=== PATIENT | male | born 1945 | race Caucasian/White ===

== ENCOUNTER 2016-05-08 10:49 | Inpatient (IN) | payer OTHER, MEDICARE ==
[~2016-05-08] VITALS: Ht 180.3 cm; Wt 93.0 kg
--- NOTE | 2016-05-08 10:55 | NUR ---
ARRIVED BY AMBULANCE WITH C/O LIGHTHEADED AND GI BLEED(BRIGHT RED BLOOD) SINCE EARLY THIS MORNING. S/P COLOSCOPY WITH POLYP REMOVAL LAST WEDNESDAY. JOSSE HELD TODAY.
--- NOTE | 2016-05-08 11:01 | ED GI/GU/ABDOMINAL COMPLAINT ---
History of Present Illness General Chief Complaint: General Adult Stated Complaint: GI BLEEDING Source: patient, old records Exam Limitations: no limitations Vital Signs & Intake/Output Vital Signs & Intake/Output Vital Signs Date Time Temp Pulse Resp B/P Pulse O2 O2 Flow FiO2 Ox Delivery Rate 05/08 1720 99 Room Air 05/08 1550 98.4 74 18 133/59 100 Room Air / 1530 97.1 70 16 132/59 100 Room Air / 1433 75 18 142/63 100 Room Air / 1345 97.1 93 18 102/58 100 Room Air 02/ 1314 96.8 91 18 101/58 100 Room Air / 1212 87 109/55 02/ 1207 92 20 95/59 99 Room Air 05/08 1130 100 05/08 1104 99 Room Air 05/08 1055 95.5 88 18 103/55 Allergies Coded Allergies: NO KNOWN ALLERGIES (04/29/16) Triage Note: ARRIVED BY AMBULANCE WITH C/O LIGHTHEADED AND GI BLEED(BRIGHT RED BLOOD) SINCE EARLY THIS MORNING. S/P COLOSCOPY WITH POLYP REMOVAL LAST WEDNESDAY. XARELTA HELD TODAY. Triage Nurses Notes Reviewed? yes HPI: Patient is a 70-year-old male presents complaining of bright red blood per rectum. Patient reports he had a colonoscopy 9 days ago. Patient reports that he had 2 large polyps removed at that time. 2 days ago he began with diarrhea, reports approximately 12 episodes of diarrhea 2 days ago and then yesterday did not have diarrhea again until approximately 11 PM. Patient noticed bright red blood per rectum starting overnight. Associated lightheadedness especially with position changes. Lightheadedness is currently mild at rest, has been severe at home. Patient takes Xarelto for atrial fibrillation, did not take his dose this morning after speaking with his GI doctor, Dr. Moreno. Patient denies abdominal pain, nausea, vomiting, melena, chest pain, dyspnea. (NICK ABERNATHY,MICHELE) Reconcile Medications Acetaminophen (Tylenol Extra Strength) 500 MG TABLET 1-2 TAB PO PRN PRN PAIN (Reported) Cyanocobalamin/FA/Pyridoxine (Folbic Tablet) 2 MG-2.5 MG-25 MG TABLET 1 TAB PO DAILY MUSCLE ATROPHY (Reported) Digoxin 125 MCG TABLET 1 TAB PO DAILY CARDIAC (Reported) MWF WHOLE PILL, T-TH HALF TAB, SAT/SUN VARIABLE, USUALLY WHOLE Docusate Sodium (Colace) 100 MG CAPSULE 1 CAP PO DAILY CONSTIPATION (Reported ) Ferrous Sulfate 324 MG (65 MG IRON) TABLET.DR 1 TAB PO DAILY ANEMIA (Reported ) Furosemide 40 MG TABLET 1 TAB PO DAILY HTN (Reported) Losartan Potassium 100 MG TABLET 1 TAB PO DAILY HTN (Reported) Metoprolol Succinate 100 MG TAB.ER.24H 1 TAB PO DAILY HTN (Reported) Rivaroxaban (Xarelto) 20 MG TABLET 1 TAB PO DAILY AFIB (Reported) with food Sacubitril/Valsartan (Entresto 24 MG-26 MG Tablet) 24 MG-26 MG TABLET 1 TAB PO DAILY CARDIAC (Reported) Spironolactone 25 MG TABLET 1 TAB PO DAILY HTN (Reported) (TOSHIA GOTTI DO) Past History Travel History Traveled to [place] past 21 day No Medical History Any Pertinent Medical History? see below for history Neurological: NONE EENT: SOFT PALATE CA Cardiovascular: hypertension, hyperlipidemia, myocardial infarction, QUADRUPLE BYPASS 1997 Surgical History Surgical History: colonoscopy Psychosocial History What is your primary language Vietnamese Tobacco Use: Never used ETOH Use: denies use Illicit Drug Use: denies illicit drug use Family History Hx Contributory? No (MICHELE DE LA ROSA) Review of Systems Review of Systems Constitutional: Reports: malaise, weakness. Denies: chills, fever. EENTM: Reports: no symptoms. Respiratory: Denies: cough, short of breath. Cardiovascular: Denies: chest pain. GI: Reports: no symptoms. Genitourinary: Reports: no symptoms. Musculoskeletal: Reports: no symptoms. Skin: Reports: no symptoms. Neurological/Psychological: Denies: headache, numbness. Hematologic/Endocrine: Reports: bleeding. Immunologic/Allergic: Reports: no symptoms. (MICHELE DE LA ROSA) Physical Exam Physical Exam General Appearance: alert, awake Head: atraumatic, normal appearance Eyes: Bilateral: PERRL, EOMI, other (pale conjunctiva). Ears, Nose, Throat, Mouth: hearing grossly normal, moist mucous membrane Neck: normal inspection, supple, full range of motion Respiratory: normal breath sounds, chest non-tender, no respiratory distress, lungs clear Cardiovascular: irregularly irregular Gastrointestinal: normal bowel sounds, soft, non-tender Rectal: small amount of bright red blood in rectal vault. No external hemorrhoids, no palpable internal hemorrhoid Back: normal inspection, normal range of motion Extremities: normal range of motion Neurologic/Psych: no motor/sensory deficits, awake, alert, oriented x 3 Skin: intact, warm/dry Core Measures ACS in differential dx? Yes ASA ordered for poss ACS? No-d/t bleeding/risk of Severe Sepsis Present: No Septic Shock Present: No (NICK ABERNATHY,MICHELE) Progress Differential Diagnosis: upper versus lower GI bleed, symptomatic anemia, demand ischemia, bowel perforation Plan of Care: Orders Procedure Date/time Status CBC WITHOUT DIFFERENTIAL 05/09 1700 Active ICU LAB BUNDLE 05/09 0500 Active CBC WITHOUT DIFFERENTIAL 05/09 0500 Active Clear Liquid Diet 05/08 D Active TROPONIN LEVEL 05/08 2300 Active EKG 05/08 2300 Active ICU LAB BUNDLE 05/08 1727 Active VTE Mechanical Prophylaxis 05/08 1719 Active Vital Signs 05/08 1719 Active Teach/Educate 05/08 1719 Active Skin Integrity Protocol 05/08 1719 Active Skin/Pressure Ulcer Assess (Sk 05/08 1719 Active Precautions 05/08 1719 Active Pain Treatment and Response 05/08 1719 Active Nutritional Intake, Monitor 05/08 1719 Active Isolation 05/08 1719 Active Patient Care Conference 05/08 1719 Active Activity/Ambulation 05/08 1719 Active TROPONIN LEVEL 05/08 1700 Active CBC WITHOUT DIFFERENTIAL 05/08 1700 Active EKG 05/08 1700 Active BLOOD PRODUCT PICKUP 05/08 1500 Active VRE ACTIVE SURVIELLANCE 05/08 1432 Active ACTIVE SURVEILLANCE NARES 05/08 1432 Active Pathway - chart 05/08 1338 Active Code Status 05/08 1338 Active Intake & Output 05/08 1312 Active Patient Data 05/08 1248 Active Admit to inpatient 05/08 1242 Active BLOOD PRODUCT PICKUP 05/08 1234 Active LEUKOCYTE POOR (PACKED CELLS) 05/08 1213 Active TOTAL IRON BINDING CAPACITY 05/08 1201 Complete FERRITIN 05/08 1201 Complete SERUM IRON 05/08 1201 Complete DIGOXIN 05/08 1201 Complete MISTAKE 05/08 1111 Active Telemetry/Building Rigger 05/08 1111 Active TROPONIN LEVEL 05/08 1111 Complete PROTHROMBIN TIME 05/08 1111 Complete COMPREHENSIVE METABOLIC PANEL 05/08 1111 Complete CBC WITHOUT DIFFERENTIAL 05/08 1111 Complete EKG 05/08 1111 Active TYPE & SCREEN (NOT X-MATCH) 05/08 1111 Active House Staff 05/08 UNK Active Lab Add-on Test 05/08 UNK Active VTE Mechanical Prophylaxis 05/08 UNK Complete Vital Signs 05/08 UNK Complete Hemoccult 05/08 UNK Active Laboratory Tests 05/08/16 1201: Anion Gap 8, Estimated GFR 50 L, BUN/Creatinine Ratio 35.7 H, Glucose 124 H, Calcium 8.9, Iron 63, TIBC 352, Ferritin 22.0, Total Bilirubin 0.8, AST 22, ALT 31, Alkaline Phosphatase 53, Troponin I 0.02, Total Protein 5.6 L, Albumin 3.4 L, Globulin 2.2, Albumin/Globulin Ratio 1.5, PT 14.7 H, INR 1.40 H, Digoxin 0.7 L 05/08/16 1128: CBC w Diff NO MAN DIFF REQ, RBC 3.19 L, MCV 87.2, MCH 29.2, RDW 21.6 H, MPV 8.6, Gran % 78.9 H, Lymphocytes % 16.5 L, Monocytes % 3.7, Eosinophils % 0.6, Basophils % 0.3, Absolute Granulocytes 5.5, Absolute Lymphocytes 1.2, Absolute Monocytes 0.3, Absolute Eosinophils 0, Absolute Basophils 0, PUBS MCHC 33.5 Microbiology 05/08 1700 UPPER RESP: Surveillance Culture - RECD 05/08 1432 GI: Surveillance Culture - COLB 1145: Discussed with and seen by Dr. Gotti: given patient's blood pressure and ekg changes, recommend transfusing 2 units of PRBC. Discussed with Dr. Moreno 1210: Patient consented to blood transfusion, risks and benefits discussed. Patient resting comfortably. Significant blood pressure drop with orthostatic vitals. 1245: Dr. Gotti discussed with Dr. 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 Prior EKG: changed Rhythm Strip: atrial fibrillation (MICHELE DE LA ROSA) Departure Departure Disposition: STILL A PATIENT Condition: Guarded Clinical Impression Primary Impression: GI bleed Qualifiers: GI bleed type/associated pathology: unspecified gastrointestinal hemorrhage type Qualified Code: K92.2 - Gastrointestinal hemorrhage, unspecified Secondary Impressions: Acute electrocardiogram changes, Elevated BUN Referrals: MARIA T GOMEZ,JASON Cantu (PCP/Family) Departure Forms: Customer Survey General Discharge Information (MICHELE DE LA ROSA) Admission Note Spoke With: JEFF GOMEZ,ADALID Mcnally Documentation of Exam: Documentation of any treatments & extenuating circumstances including Concerns Regarding Discharge (functional status, medication knowledge or non-compliance, living conditions, etc.) that warrant an admission rather than observation: [The patient needs admission to the ICU for IV fluids, GI consultation, possible blood transfusion, possible inpatient colonoscopy, intensive hemodynamic monitoring, Dr Land and Dr. Moreno have both been informed] I have seen and personally examined the patient and I agree with the PAs evaluation. He is pale. Hypotensive. PA/SPARE FIXER Co-Sign Statement Statement: ED Attending supervision documentation- [X] I saw and evaluated the patient. I have also reviewed all the pertinent lab results and diagnostic results. I agree with the findings and the plan of care as documented in the PA's/SPARE FIXER's documentation. [] I have reviewed the ED Record and agree with the PA's/SPARE FIXER's documentation. [] Additions or exceptions (if any) to the PAs/SPARE FIXER's note and plan are summarized below: [] (TOSHIA GOTTI DO) Critical Care Note Critical Care Note Critical Care Time: 30-74 min (MICHELE DE LA ROSA)
--- NOTE | 2016-05-08 11:02 | NUR ---
PT HAD A COLONOSCOPY AND STARTED HAVING DIARRHEA ON WEDNESDAY WITH SOME BLEEDING LAST NIGHT. PT FEELING LIGHTHEADED, DENIES ABD PAIN.
--- NOTE | 2016-05-08 11:04 | NUR ---
DR. COLBERT INSTRUCTED PATIENT TO HOLD THE XARELTA TODAY.
--- NOTE | 2016-05-08 11:36 | NUR ---
BLOOD SENT (SST/LAV/BLUE/PINK). MST AT BEDSIDE FOR ORTHOSTATICS. PT ALERT, DENIES DIZZINESS WHILE SEATED. ON TELE MONITOR AND CONT SP02.
--- NOTE | 2016-05-08 11:39 | NUR ---
BP/L ARM, 80/60, R ARM 90/60
[2016-05-08 11:43] LABS: ABSOLUTE BASOPHIL COUNT 0 /CUMM (0.0-0.2); ABSOLUTE EOSINOPHIL COUNT 0 /CUMM (0.0-0.7); ABSOLUTE GRANULOCYTE CT 5.5 /CUMM (1.4-6.5); ABSOLUTE LYMPH COUNT 1.2 /CUMM (1.2-3.4); ABSOLUTE MONOCYTE COUNT 0.3 /CUMM (0.10-0.60); BASOPHIL % 0.3 % (0.0-2.0); EOSINOPHIL % 0.6 % (0-5); GRANULOCYTE % 78.9 % (42.2-75.2); HEMATOCRIT 27.8 % (42-52); MEAN CORPUSCULAR HGB 29.2 PG (27.0-31.0); MEAN CORPUSCULAR HGB CONC 33.5 G/DL (33.0-37.0); MEAN CORPUSCULAR VOLUME 87.2 FL (80.0-94.0); MEAN PLATELET VOLUME 8.6 FL (7.4-10.4); PLATELET COUNT 140 /CUMM (130-400); RBC DISTRIBUTION WIDTH 21.6 % (11.5-14.5); RED BLOOD CELL CT 3.19 /CUMM (4.70-6.10)
--- NOTE | 2016-05-08 12:06 | NUR ---
2OG IV LINE INSERTED TO LEFT AC. REPEAT BP 95/59
--- NOTE | 2016-05-08 12:07 | NUR ---
LABS DRAWN AND SENT
--- NOTE | 2016-05-08 12:11 | NUR ---
SECOND LITER OF NS INFUSING PER JOSEMANUEL ROBINS ORDER. BP 109/55. BLOOD TRANSFUSION CONSENT OBTAINED BY PA. PT AWARE OF PLAN OF CARE AND IN AGREEMENT TO RECEIVE BLOOD TRANSFUSION
[2016-05-08 12:26] LABS: PT 14.7 SEC (9.4-12.5)
--- NOTE | 2016-05-08 13:31 | Cons- Gastroenterology ---
General Information and HPI Consulting Request Date of Consult: 05/08/16 Requested By: JOSEMANUEL Brownlee Reason for Consult: BRBPR s/p colonoscopy one week ago. Iron deficiency anemia. Source of Information: patient, old records Exam Limitations: no limitations History of Present Illness: Mr. Darnell is a 70-year-old male with history of atrial fibrillation on Xarelto who presented to [facility] this morning with complaints of bright blood per rectum. The patient underwent a colonoscopy a week ago Wednesday at which point 2 large sessile right-sided colon polyps were removed in a piecemeal fashion and the polypectomy sites then had a total of 7 hemoclips applied to them. He was instructed to hold his Xarelto for 72 hours which he did and he restarted it over the weekend. He had been doing well without any significant abdominal pain and with normal bowel movements, but then last night he began having some loose stool and early this morning he noted his stool to be blood tinged, but he did not pass any clots. He called my office at which point he reported some lightheadedness and he was therefore told to go to the emergency room for further evaluation. In the ER he was hemodynamically stable and he has not had any further bleeding since this morning. Allergies/Medications Allergies: Coded Allergies: NO KNOWN ALLERGIES (04/29/16) Home Med List: Acetaminophen (Tylenol Extra Strength) 500 MG TABLET 1-2 TAB PO PRN PRN PAIN (Reported) Cyanocobalamin/FA/Pyridoxine (Folbic Tablet) 2 MG-2.5 MG-25 MG TABLET 1 TAB PO DAILY MUSCLE ATROPHY (Reported) Digoxin 125 MCG TABLET 1 TAB PO DAILY CARDIAC (Reported) MWF WHOLE PILL, T-TH HALF TAB, SAT/SUN VARIABLE, USUALLY WHOLE Docusate Sodium (Colace) 100 MG CAPSULE 1 CAP PO DAILY CONSTIPATION (Reported ) Ferrous Sulfate 324 MG (65 MG IRON) TABLET.DR 1 TAB PO DAILY ANEMIA (Reported ) Furosemide 40 MG TABLET 1 TAB PO DAILY HTN (Reported) Losartan Potassium 100 MG TABLET 1 TAB PO DAILY HTN (Reported) Metoprolol Succinate 100 MG TAB.ER.24H 1 TAB PO DAILY HTN (Reported) Rivaroxaban (Xarelto) 20 MG TABLET 1 TAB PO DAILY AFIB (Reported) with food Sacubitril/Valsartan (Entresto 24 MG-26 MG Tablet) 24 MG-26 MG TABLET 1 TAB PO DAILY CARDIAC (Reported) Spironolactone 25 MG TABLET 1 TAB PO DAILY HTN (Reported) Current Medications: Current Medications Sig/Camron Start time Last Medication Dose Route Stop Time Status Admin Sodium Chloride 1,000 ML BOLUS ONE 05/08 1215 DC 05/08 IV 05/08 1314 1130 Past History Travel History Traveled to [place] past 21 day No Medical History Neurological: NONE EENT: SOFT PALATE CA Cardiovascular: hypertension, hyperlipidemia, myocardial infarction, QUADRUPLE BYPASS 1998 Surgical History Surgical History: colonoscopy Psychosocial History ETOH Use: denies use Illicit Drug Use: denies illicit drug use Review of Systems Review of Systems Constitutional: Reports: malaise, weakness. Denies: chills, diaphoresis, unexplained weight loss. EENTM: Denies: no symptoms. Cardiovascular: Denies: no symptoms. Respiratory: Denies: no symptoms. GI: Reports: see HPI. Genitourinary: Denies: no symptoms. Musculoskeletal: Denies: no symptoms. Skin: Denies: no symptoms. Neurological/Psychological: Denies: no symptoms. Hematologic/Endocrine: Denies: no symptoms. Immunologic/Allergic: Denies: no symptoms. All Other Systems: Reviewed and Negative Exam & Diagnostic Data Vital Signs and I&O Vital Signs Date Time Temp Pulse Resp B/P Pulse O2 O2 Flow FiO2 Ox Delivery Rate 05/08 1314 96.8 91 18 101/58 100 Room Air 05/08 1212 87 109/55 05/08 1207 92 20 95/59 99 Room Air 05/08 1130 100 05/08 1104 99 Room Air 05/08 1055 95.5 88 18 103/55 Intake & Output 05/08 1600 05/08 0400 05/07 1600 05/07 0400 05/06 1600 05/06 0400 Intake Total 2000 Output Total Balance 2000 Intake, IV 2000 Patient 200 lb Weight Physical Exam General Appearance: well developed/nourished, no apparent distress, alert, comfortable Head: atraumatic, normal appearance Eyes: Bilateral: normal appearance. Ears, Nose, Throat: normal pharynx, normal ENT inspection Neck: normal inspection, supple, full range of motion Respiratory: normal breath sounds, chest non-tender, no respiratory distress Cardiovascular: irregularly irregular Gastrointestinal: normal bowel sounds, soft, non-tender, no organomegaly Rectal: deferred Back: normal inspection, normal range of motion Extremities: no edema Neurologic/Psych: no motor/sensory deficits, awake, alert, oriented x 3 Skin: intact, normal color, warm/dry Results Pertinent Lab Results: Laboratory Tests 05/08 05/08 1201 1128 Chemistry Sodium (137 - 145 mmol/L) 139 Potassium (3.5 - 5.1 mmol/L) 4.7 Chloride (98 - 107 mmol/L) 108 H Carbon Dioxide (22 - 30 mmol/L) 23 Anion Gap (5 - 16) 8 BUN (9 - 20 mg/dL) 50 H Creatinine (0.7 - 1.2 mg/dL) 1.4 H Estimated GFR (>60 ml/min) 50 L BUN/Creatinine Ratio (7 - 25 %) 35.7 H Glucose (65 - 99 mg/dL) 124 H Calcium (8.4 - 10.2 mg/dL) 8.9 Total Bilirubin (0.2 - 1.3 mg/dL) 0.8 AST (17 - 59 U/L) 22 ALT (21 - 72 U/L) 31 Alkaline Phosphatase (< 127 U/L) 53 Troponin I (<0.11 ng/ml) 0.02 Total Protein (6.3 - 8.2 g/dL) 5.6 L Albumin (3.5 - 5.0 g/dL) 3.4 L Globulin (1.9 - 4.2 gm/dL) 2.2 Albumin/Globulin Ratio (1.1 - 2.2 %) 1.5 Coagulation PT (9.4 - 12.5 SEC) 14.7 H INR (0.90 - 1.17) 1.40 H Hematology CBC w Diff NO MAN DIFF REQ WBC (4.8 - 10.8 /CUMM) 7.0 RBC (4.70 - 6.10 /CUMM) 3.19 L Hgb (14.0 - 18.0 G/DL) 9.3 L Hct (42 - 52 %) 27.8 L MCV (80.0 - 94.0 FL) 87.2 MCH (27.0 - 31.0 PG) 29.2 RDW (11.5 - 14.5 %) 21.6 H Plt Count (130 - 400 /CUMM) 140 MPV (7.4 - 10.4 FL) 8.6 Gran % (42.2 - 75.2 %) 78.9 H Lymphocytes % (20.5 - 51.1 %) 16.5 L Monocytes % (1.7 - 9.3 %) 3.7 Eosinophils % (0 - 5 %) 0.6 Basophils % (0.0 - 2.0 %) 0.3 Absolute Granulocytes (1.4 - 6.5 /CUMM) 5.5 Absolute Lymphocytes (1.2 - 3.4 /CUMM) 1.2 Absolute Monocytes (0.10 - 0.60 /CUMM) 0.3 Absolute Eosinophils (0.0 - 0.7 /CUMM) 0 Absolute Basophils (0.0 - 0.2 /CUMM) 0 PUBS MCHC (33.0 - 37.0 G/DL) 33.5 Imaging/Other Studies: Findings: There was a 1.5 cm sessile polyp in the cecum and there was also a 3 cm sessile polyp along the ileocecal valve. Both of the polyps were removed with a hexagonal snare and monopolar cautery in a piecemeal fashion and the pieces were retrieved through the colonoscope and were sent to pathology for further evaluation. 3 hemoclips were then placed over the cecal polypectomy site and another 4 hemoclips were then placed over the ileocecal valve polypectomy site ' closing' the defect without any significant bleeding ensuing. There were a few scattered diverticula appreciated in the sigmoid colon. The remainder the visualized colonic mucosa was grossly normal. Retroflex views in the rectum revealed small internal hemorrhoids. Retroflexed views in the right colon revealing polyps. Impression: 1. 2 large sessile right-sided colon polyp status post removal in a piecemeal fashion with a total of 7 prophylactic Hemoclip placed over the polypectomy sites. 2. Sigmoid diverticulosis. 3. Small internal hemorrhoids. TWO POLYPS, CECUM AND ASCENDING COLON, MULTIPLE POLYPECTOMIES: MULTIPLE TUBULAR ADENOMAS. NEGATIVE FOR INVASIVE CARCINOMA. Assessment/Plan Assessment/Recommendations: Assessment: Mr. Hollins is a 70 year old male with atrial fibrillation on xarelto who underwent a colonoscopy last week during which time two large right sided colonic polyps were removed who presents now with a few episodes of bright red blood per rectum which is quite likely secondary to a post polypectomy bleed and exacerbated by the xarelto. His hgb is stable from when he was first found to be anemic this past February, so while he is a bit hypotensive it doesn't appear as though he has lost a significant amount of blood and I am hopeful that repeat endoscopic intervention won't be necessary. It is possible that one of the clips may have fallen off accounting for the current bleeding or it is also possible that the bleeding may be unrelated to the polypectomies and could be secondary to hemorrhoids exacerbated by the diarrhea that he has had or a diverticular bleed is also possible, but he doesn't seem to be behaving as a diverticular bleed. Regardless, as he just had a colonoscopy a repeat one only needs to be done now if his bleeding persists in spite of holding the Xarelto although he still should have a repeat colonoscopy in 3-6 months to ensure that all of the adenomatous tissue has been removed. Recommendations: 1. Admit to the medical service. 2. Follow CBC q12 hours and transfuse as needed to keep hgb > 8 or as per cardiology recommendations. 3. Hold Xarelto and nsaids for now 4. Notify GI for signs of hemodynamically significant bleeding 5. If bleeding persists/recurs will then arrange for a repeat colonoscopy, but as he has not had any further bleeding since this am will hold off on that for now. 6. Full liquid diet ok for now with nothing red administered. I will continue to follow this patient and make further recommendations based on his clinical course and results of repeat blood work. Problem List: 1. GI bleed Copies To: JASON LIVE MD Consult Acknowledgment - Thank you for your consult request.
--- NOTE | 2016-05-08 13:35 | NUR ---
PT SEEN BY HOUSE STAFF FOR EVAL
--- NOTE | 2016-05-08 13:36 | History & Physical ---
ADONIS GOMEZ,[facility] 05/08/16 1336: General Information and HPI MD Statement: I have seen and personally examined EDDI ELLINGTON and documented this H&P. The patient is a 70 year old M who presented with a patient stated chief complaint of [bloody diarrhea, weakness, and dizziness]. Source of Information: patient, old records Exam Limitations: no limitations History of Present Illness: 70/M with PMH of HTN, HLD, A.fib on Xarelto,LE varicose veins, bypass surgery 19 years ago, and soft palate cancer (S/P resection, chemotherapy, and radiation 9 years ago) who presented to [facility] this morning with complaints of bright blood per rectum The patient underwent a colonoscopy on last Wednesday at which 2 large sessile right-sided colon polyps were removed. according to the patient he was told to hold Xarelto for 48 hours which he did. patient symptom started as dark watery bowel movements that day after the colonoscopy, his diarrhea then resolved until yesterday when he started again to have a brown-red loose stool, earlier today he had large watery bloody bowel movement. Since earlier today his diarrhea started to be associated with dizziness, lightheadedness and weakness. He denies fall, LOC, chest pain, palpitation or other symptom suggestive of severe anemia. Patient denies eating from outside, contact with people has similar symptom, recent use of antibiotic, recent travel, abdominal pain, nausea , vomiting, fever or chills. Patient has a strong family history of cancer with his father because of lymphosarcoma and mother because of breast cancer. Patient ambulates independently at baseline, smoked for 20 years 1 PPD followed by 35 years of average 2 cigars daily. Patient denies current alcohol drinking with his last drink being 35 years ago. He denies any other recreational drug use. Allergies/Medications Allergies: Coded Allergies: NO KNOWN ALLERGIES (04/29/16) Home Med list Acetaminophen (Tylenol Extra Strength) 500 MG TABLET 1-2 TAB PO PRN PRN PAIN (Reported) Cyanocobalamin/FA/Pyridoxine (Folbic Tablet) 2 MG-2.5 MG-25 MG TABLET 1 TAB PO DAILY MUSCLE ATROPHY (Reported) Digoxin 125 MCG TABLET 1 TAB PO DAILY CARDIAC (Reported) MWF WHOLE PILL, T-TH HALF TAB, SAT/SUN VARIABLE, USUALLY WHOLE Docusate Sodium (Colace) 100 MG CAPSULE 1 CAP PO DAILY CONSTIPATION (Reported ) Ferrous Sulfate 324 MG (65 MG IRON) TABLET.DR 1 TAB PO DAILY ANEMIA (Reported ) Furosemide 40 MG TABLET 1 TAB PO DAILY HTN (Reported) Losartan Potassium 100 MG TABLET 1 TAB PO DAILY HTN (Reported) Metoprolol Succinate 100 MG TAB.ER.24H 1 TAB PO DAILY HTN (Reported) Rivaroxaban (Xarelto) 20 MG TABLET 1 TAB PO DAILY AFIB (Reported) with food Sacubitril/Valsartan (Entresto 24 MG-26 MG Tablet) 24 MG-26 MG TABLET 1 TAB PO DAILY CARDIAC (Reported) Spironolactone 25 MG TABLET 1 TAB PO DAILY HTN (Reported) Past History Travel History Traveled to [place] past 21 day No Medical History Neurological: NONE EENT: SOFT PALATE CA Cardiovascular: hypertension, hyperlipidemia, myocardial infarction, QUADRUPLE BYPASS 1997 Surgical History Surgical History: colonoscopy Past Family/Social History Psychosocial History ETOH Use: denies use Illicit Drug Use: denies illicit drug use Review of Systems Review of Systems Constitutional: Reports: weakness. Denies: chills, diaphoresis, fever, malaise. EENTM: Reports: see HPI. Denies: blurred vision, visual changes, hearing changes. Cardiovascular: Denies: chest pain, orthopena, palpitations, peripheral edema, syncope. Respiratory: Denies: cough, hemoptysis, short of breath, sputum production. GI: Reports: diarrhea, melena, bloody stool. Denies: abdominal pain, constipation, distention, nausea, vomiting. Genitourinary: Denies: dysuria. Skin: Reports: see HPI. Exam & Diagnostic Data Last 24 Hrs of Vital Signs/I&O Vital Signs Date Time Temp Pulse Resp B/P Pulse O2 O2 Flow FiO2 Ox Delivery Rate 05/08 1345 97.1 93 18 102/58 100 Room Air / 1314 96.8 91 18 101/58 100 Room Air / 1212 87 109/55 02/ 1207 92 20 95/59 99 Room Air 02/ 1130 100 / 1104 99 Room Air 05/08 1055 95.5 88 18 103/55 Intake & Output 05/08 1600 05/08 0800 05/08 0000 Intake Total 1999 Output Total Balance 1999 Intake, IV 2000 Patient 90.718 kg Weight Physical Exam General Appearance Alert, Oriented X3, Cooperative, No Acute Distress Skin varicose pain over the lower limb bilaterally HEENT Atraumatic, PERRLA, EOMI, Mucous Membr. moist/pink Neck Supple, No JVD Cardiovascular irregular irregular Lungs Clear to Auscultation, right side has less air entry than left side, no wheezing or any additional sounds Abdomen Soft, No Tenderness Neurological Normal Speech Extremities No Edema, request pain over both lower extremity shins Last 24 Hrs of Labs/Williams: Laboratory Tests 05/08/16 1201: Anion Gap 8, Estimated GFR 50 L, BUN/Creatinine Ratio 35.7 H, Glucose 124 H, Calcium 8.9, Total Bilirubin 0.8, AST 22, ALT 31, Alkaline Phosphatase 53, Troponin I 0.02, Total Protein 5.6 L, Albumin 3.4 L, Globulin 2.2, Albumin/ Globulin Ratio 1.5, PT 14.7 H, INR 1.40 H 05/08/16 1128: CBC w Diff NO MAN DIFF REQ, RBC 3.19 L, MCV 87.2, MCH 29.2, RDW 21.6 H, MPV 8.6, Gran % 78.9 H, Lymphocytes % 16.5 L, Monocytes % 3.7, Eosinophils % 0.6, Basophils % 0.3, Absolute Granulocytes 5.5, Absolute Lymphocytes 1.2, Absolute Monocytes 0.3, Absolute Eosinophils 0, Absolute Basophils 0, PUBS MCHC 33.5 Assessment/Plan Assessment: 70/M with PMH of [place] on Xarelto who underwent a colonoscopy a week ago and presented to [facility] this morning with complaints of bright blood per rectum. Assessment and plan 1. Bright blood per rectum/bloody diarrhea/weakness/dizziness Patient is on Xarelto for A.fib, he underwent a colonoscopy a week ago, according to the patient he held Xarelto for 48 hours. Patient now presented with anemia associated with symptom and sign suggestive of hypovolemia(low BP, weakness and dizziness). * Patient will be admitted and his vital will be monitored Q1h * We will transfuse patient with 2 packed RBCs. * She will be nothing by mouth * Patient will be given PPI IV * Xarelto and antihypertensive will be on hold for now. * GI already informed, we'll follow their recommendation 2.Normocytic anemia Hemoglobin on November 2015 was 14, on February 2016 his hemoglobin dropped to 9.5. Old records indicate that since February 18 his hemoglobin has been around 9.5. We don't have enough records about this patient, but maybe this is not the first GI bleeding. Patient is on iron supplement which can turn stool dark. * Iron study * We will hold all iron supplement 3.ST abnormalities on EKG Patient EKG showed some ST elevation and depression. Did not really change from his previous EKG. STEMI and NSTEMI must be ruled out given the fact that we cannot count on the EKG. * ACS will be ruled out by serial of troponin and EKG * Patient has extensive cardiac history, we will consider consulting cardiology. 4.DOROTHY Cr baseline is 1, On admission his creatinine is 1.4. BUN/creatinine ratio of 35.7, this is most likely prerenal in nature. Given the history of bleeding, this patient most likely has DOROTHY 2/2 hypovolemia. * Patient will receive IV fluid * Patient will receive blood transfusion * Lisinopril and furosemide both on hold * Renal function will be repeated daily 5. A. fib * Xarelto on hold * We will keep potassium more than 4 and magnesium more than 2. * Metoprolol will be in hold his of hypotension. We will monitor her heartrate until further cardiology recommendation. 6.CHF with ICD implanted * Strict input and output * We will continue Digoxin * We will continue Spironolacton * Furosemide on hold(DOROTHY and hypotention) 7.HTN * Antihypertensive will be on hold until his blood pressure is stable * Entresto on hold * Metoprolol on hold 8.HLD * His statin will be held because of very low LDL DVT: ALPS only for now Diet: Nothing by mouth CODE STATUS: Full code As Ranked By This Provider Problem List: 1. GI bleed Qualifiers GI bleed type/associated pathology: unspecified gastrointestinal hemorrhage type Qualified Code: K92.2 - Gastrointestinal hemorrhage, unspecified Core Measures/Miscellaneous Acute Coronary Syndrome ACS Diagnosis: No Cerebrovascular Accident CVA/TIA Diagnosis: No Congestive Heart Failure CHF Diagnosis: No Venous Thromboembolism VTE Risk Factors: Age > 40, Smoking VTE Prophylaxis Ordered Inpt: Mechanical (ALPS/TEDS) No Mech VTE prophylaxis d/t: No contraindications No VTE Pharm Prophylaxis d/t: Active bleeding VTE Diagnosis: No VTE Type: NONE VTE Confirmed by (Test): NONE Severe Sepsis Severe Sepsis Present: No Septic Shock Septic Shock Present: No Miscellaneous Documentation Attending Case Discussed With: JEFF GOMEZ,ADALID Mcnally Primary Care Physician: JASON LIVE MD Patient sees these Specialists JASON LIVE MD Level of Patient Care: Critical Care (CRI) MILLA DARBY 05/08/16 1551: Past Family/Social History Family History Relations & Conditions if any FATHER (Lymphosarcoma). MOTHER (Breast cancer). Resident Review Statement Resident Statement: examined this patient, discussed with corporate legal intern, agreed with corporate legal intern, reviewed EMR data (avail) Other Findings: This is a 70 years old gentleman with past medical history of A. fib on arrival toe and digoxin status post ICD 2 years ago, coronary artery disease status post quadruple bypass in 1997, hypertension, soft palate cancer status post chemotherapy and radiotherapy 9 years ago after which deemed to be cancer free who presented with 2 days history of profuse diarrhea in which has been followed subsequently with pink stool and then blood in stool. He denies any abdominal pain, nausea, vomiting. He has no sick contacts and has not eaten anything out of ordinary. The patient had colonoscopy and excision of 2 sessile polyps on April 29 head he is very little for 48 hours as instructed and he started later on without any complication till when she started noting blood in stool. He volunteers history of lightheadedness and dizziness but denies any difficulty in breathing, palpitation, shortness of breath, has no chest pain. Patient denies any recent use of antibiotics. Physical examination: not in acute distress, alert oriented 3 HEENT: dry mucous membranes, no palpable nodes CVS: Irregularly irregular, no murmurs RS: Anterior mid chest wall scar, AICD in place, clear lungs bilaterally Abdomen: normal contour soft no tenderness, no palpable mass Extremeties: varicose vein, no edema, warm extremities Labs: H&H 9.3 and 27.8, INR 1.40, PTT 14.7, BUN of 50, creatinine 1.4 (baseline 1.0-1.1), GFR of 50 EKG: A. fib 94 bpm irregularly irregular, left bundle branch block and ST depression which were present from old EKG. Assessment and plan 70 years old gentleman presenting with 2 day history of diarrhea which he describes as projectile about 12 times yesterday and observation of blood in the stool which prior was pinkish and also complaining of dizziness and lightheadedness. He has no recent antibiotic use denies sick contact or eating anything exotic. On arrival was slightly hypotensive with slightly increased creatinine of 1.4 and a significantly high BUN of 50 Problem list Lower GI bleeding Dehydration with hypotension Acute kidney injury Artery fibrillation History of CAD status post quadruple bypass Lower GI bleeding Will admit the patient to intensive care unit, keep the patient nothing by mouth , 2 large-bore cannulas, blood grouping and crossmatch, IV Protonix 40 mg daily, CBC every 8 hours. Acute kidney injury Patient presenting with significant bump in creatinine from baseline of 1.1-1.4 and the picture of profuse diarrhea. this patient has coronary artery disease status post quadruple bypass and also has an AICD, no records about last echo with current EF. the patient received 1 liter NS bolus, will keep the patient on high maintance 150cc/hr for 1 litre and then track renal function. Dehydration with hypotension Developing from profuse diarrhea and reduced oral intake. Patient started on bolus NS and will keep on high maintanance. Will hold antihypertensive medications to be restarted when pressure has normalized. Atrial Fibrillation will hold digoxin and keep the patient on assembler bonding.
[2016-05-08] MEDS ORDERED: METOPROLOL SUC100 M2 PO (13:41)
[2016-05-08] MEDS ORDERED: LOSARTAN POTAS100 M1 PO (13:41)
[2016-05-08] MEDS ORDERED: XARELTO20 M2 PO (13:41)
[2016-05-08] MEDS ORDERED: SPIRONOLACTONE25 M1 PO (13:42)
[2016-05-08] MEDS ORDERED: FUROSEMIDE40 M1 PO (13:42)
[2016-05-08] MEDS ORDERED: ENTRESTO 24 MG1 EACH PO (13:42)
[2016-05-08] MEDS ORDERED: DIGOXIN125 MCG PO (13:43)
[2016-05-08] MEDS ORDERED: FOLBIC TABLET1 EACH PO (13:43)
[2016-05-08] MEDS ORDERED: COLACE100 M1 PO (13:44)
[2016-05-08] MEDS ORDERED: FERROUS SULFAT324 MG PO (13:44)
[2016-05-08] MEDS ORDERED: TYLENOL EXTRA500 M2 PO (13:45)
--- NOTE | 2016-05-08 13:51 | NUR ---
[facility] INFUSING 1ST UNIT, NO REACTION SO FAR. DR BROUSSARD AT BEDSIDE. ICE CHIPS PROVIDED (OK PER DR BROUSSARD). PT AWARE HE IS NPO OTHERWISE. PT OFFERS NO COMPLAINTS AT THIS TIME, AWAITING BED ASSIGNMENT.
--- NOTE | 2016-05-08 14:19 | Cons- CRCU ---
General Information and HPI Consulting Request Date of Consult: 05/08/16 Requested By: ed History of Present Illness: 70/M with PMH of HTN, HLD, A.fib on Xarelto,LE varicose veins, bypass surgery 19 years ago, and soft palate cancer (S/P resection, chemotherapy, and radiation 9 years ago) who presented to this morning with complaints of bright blood per rectum The patient underwent a colonoscopy on last Wednesday at which 2 large sessile right-sided colon polyps were removed. according to the patient he was told to hold Xarelto for 48 hours which he did. patient symptom started as dark watery bowel movements that day after the colonoscopy, his diarrhea then resolved until yesterday when he started again to have a brown-red loose stool, earlier today he had large watery bloody bowel movement. Since earlier today his diarrhea started to be associated with dizziness, lightheadedness and weakness. He denies fall, LOC, chest pain, palpitation or other symptom suggestive of severe anemia. Patient denies eating from outside, contact with people has similar symptom, recent use of antibiotic, recent travel, abdominal pain, nausea , vomiting, fever or chills. In the ER he is hemodynamic stable and he has not had any further bleeding since this morning. review of symptoms as noted Review of Systems Constitutional: Reports: malaise, weakness. Denies: chills, fever. EENTM: Reports: no symptoms. Respiratory: Denies: cough, short of breath. Cardiovascular: Denies: chest pain. GI: Reports: no symptoms. Genitourinary: Reports: no symptoms. Musculoskeletal: Reports: no symptoms. Skin: Reports: no symptoms. Neurological/Psychological: Denies: headache, numbness. Hematologic/Endocrine: Reports: bleeding. Immunologic/Allergic: Reports: no symptoms. SIGNIFICANT DATA Recent colonoscopy showed 2 large right-sided colon polyp status post removal, sigmoid diverticulosis, small internal hemorrhoids. Previous history reviewed which showed coronary artery disease, hypertension, hyperlipidemia, [place], previous CABG 1997, previous soft palate malignancy. Allergies/Medications Allergies: Coded Allergies: NO KNOWN ALLERGIES (04/29/16) Home Med List: Acetaminophen (Tylenol Extra Strength) 500 MG TABLET 1-2 TAB PO PRN PRN PAIN (Reported) Cyanocobalamin/FA/Pyridoxine (Folbic Tablet) 2 MG-2.5 MG-25 MG TABLET 1 TAB PO DAILY MUSCLE ATROPHY (Reported) Digoxin 125 MCG TABLET 1 TAB PO DAILY CARDIAC (Reported) MWF WHOLE PILL, T-TH HALF TAB, SAT/SUN VARIABLE, USUALLY WHOLE Docusate Sodium (Colace) 100 MG CAPSULE 1 CAP PO DAILY CONSTIPATION (Reported ) Ferrous Sulfate 324 MG (65 MG IRON) TABLET.DR 1 TAB PO DAILY ANEMIA (Reported ) Furosemide 40 MG TABLET 1 TAB PO DAILY HTN (Reported) Losartan Potassium 100 MG TABLET 1 TAB PO DAILY HTN (Reported) Metoprolol Succinate 100 MG TAB.ER.24H 1 TAB PO DAILY HTN (Reported) Rivaroxaban (Xarelto) 20 MG TABLET 1 TAB PO DAILY AFIB (Reported) with food Sacubitril/Valsartan (Entresto 24 MG-26 MG Tablet) 24 MG-26 MG TABLET 1 TAB PO DAILY CARDIAC (Reported) Spironolactone 25 MG TABLET 1 TAB PO DAILY HTN (Reported) Past History Travel History Traveled to [place] past 21 day No Medical History Neurological: NONE EENT: SOFT PALATE CA Cardiovascular: hypertension, hyperlipidemia, myocardial infarction, QUADRUPLE BYPASS 1997 Surgical History Surgical History: colonoscopy Psychosocial History ETOH Use: denies use Illicit Drug Use: denies illicit drug use Exam & Diagnostic Data Last 24 Hrs of Vital Signs/I&O Vital Signs Date Time Temp Pulse Resp B/P Pulse O2 O2 Flow FiO2 Ox Delivery Rate 05/08 1345 97.1 93 18 102/58 100 Room Air 05/08 1314 96.8 91 18 101/58 100 Room Air 05/08 1212 87 109/55 05/08 1207 92 20 95/59 99 Room Air 05/08 1130 100 05/08 1104 99 Room Air 05/08 1055 95.5 88 18 103/55 Intake & Output 05/08 1600 05/08 0800 05/08 0000 Intake Total 2000 Output Total Balance 2000 Intake, IV 2000 Patient 200 lb Weight Last 48 Hrs of Labs/Wliliams: Laboratory Tests 05/08/16 1201: Anion Gap 8, Estimated GFR 50 L, BUN/Creatinine Ratio 35.7 H, Glucose 124 H, Calcium 8.9, Total Bilirubin 0.8, AST 22, ALT 31, Alkaline Phosphatase 53, Troponin I 0.02, Total Protein 5.6 L, Albumin 3.4 L, Globulin 2.2, Albumin/ Globulin Ratio 1.5, PT 14.7 H, INR 1.40 H 05/08/16 1128: CBC w Diff NO MAN DIFF REQ, RBC 3.19 L, MCV 87.2, MCH 29.2, RDW 21.6 H, MPV 8.6, Gran % 78.9 H, Lymphocytes % 16.5 L, Monocytes % 3.7, Eosinophils % 0.6, Basophils % 0.3, Absolute Granulocytes 5.5, Absolute Lymphocytes 1.2, Absolute Monocytes 0.3, Absolute Eosinophils 0, Absolute Basophils 0, PUBS MCHC 33.5 Assessment/Plan Impression/Plan: Physical Exam General Appearance: alert, awake Head: atraumatic, normal appearance Eyes: Bilateral: PERRL, EOMI, other (pale conjunctiva). Ears, Nose, Throat, Mouth: hearing grossly normal, moist mucous membrane Neck: normal inspection, supple, full range of motion Respiratory: normal breath sounds, chest non-tender, no respiratory distress, lungs clear Cardiovascular: irregularly irregular Gastrointestinal: normal bowel sounds, soft, non-tender Rectal: small amount of bright red blood in rectal vault. No external hemorrhoids, no palpable internal hemorrhoid Back: normal inspection, normal range of motion Extremities: normal range of motion Neurologic/Psych: no motor/sensory deficits, awake, alert, oriented x 3 Skin: intact, warm/dry IMPRESSION This is a gentleman with recent colonoscopy with 2 large polyps which was removed, atrial fibrillation on anticoagulation with Xeralto, previous history of ischemic heart disease, cardiomyopathy, previous history of soft palate malignancy status post resection, chemotherapy, radiation 9 years ago, 20-pack- year smoking history with on and off cigar use, now comes in with * Significant lower GI bleed with hemodynamic instability which seems to have resolved after he was given intravenous fluids, now stable. Most likely source of his GI bleed is probably bleeding from his polyp removal site. Differential diagnoses include diverticular bleed versus hemorrhoidal bleed as patient is on Xeralto with internal hemorroids * REcent watery diarrhea prior to gi bleed, rule out any other causes of diarrhea * Stable hemoglobin ( since the last hemoglobin done in February.) * Atrial fibrillation with ischemic cardiomyopathy with probable low ejection fraction on Xeralto which may have compounded his bleeding. * Mild chronic kidney disease with slight worsening of his renal function most likely prerenal. * Chronic venous insufficiency with varicose veins with no evidence suggestive of active venous thromboembolism as he was already on anticoagulation with chronic leg edema. * Hypertension hyperlipidemia * Small internal hemorrhoids and sigmoid diverticulosis in the past. RECOMMENDATION Admit * Follow hemoglobin, hematocrit * Follow his stool. * GI consult. * Keep nothing by mouth for now. * Hold digoxin. * Check digoxin level. * Follow renal function this evening. Repeat blood work with C BC * Every 4 hours C BC for now. * Hold Xeralto * Hold his current hypertensive medication. * By mouth or IV PPI for now. * Hold spironolactone. * Follow his EKG and rule out myocardial infarction as he has, previous history of ischemic heart disease. Patient was critically ill upon admission but now seems to be slowly improving. Total time spent 45 minutes Consult Acknowledgment - Thank you for your consult request.
--- NOTE | 2016-05-08 14:24 | NUR ---
PT ADMITTED TO ROOM 109
--- NOTE | 2016-05-08 15:00 | NUR ---
FIRST UNIT BLOOD COMPLETE, NO REACTION, VITALS IMPROVING. PT WITH NO COMPLAINTS. PICKUP PLACED FOR 2ND UNIT NOW.
--- NOTE | 2016-05-08 15:50 | NUR ---
2ND UNIT RBCS UP, VSS
--- NOTE | 2016-05-08 16:03 | NUR ---
REPORT CALLED TO [facility] ON ICU, PT TO GO TO ROOM 104, ROOM AND STAFF ARE READY.
--- NOTE | 2016-05-08 16:06 | NUR ---
PT WILL GO TO ROOM 104
--- NOTE | 2016-05-08 16:44 | NUR ---
TRANSPORT HERE FOR PT
--- NOTE | 2016-05-08 18:47 | NUR ---
PT RECIEVED FROM ED AT 1700. PT A/O, NO NEORU DEFECITS NOTED. WALKED FROM STRETCHER TO BED. MILD LIGHTHEADEDNESS, SUBSIDING W REST. 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 PT IS ON RA AND 99%. LUNGS CLEAR. BLOOD TRANSFUSION COMPLETED. NO TRANSFUSION RXN NOTED. PT HAS A SOFT ABDOMEN WITH NO PAIN. NO C/O N/V. TOLERATING ICE CHIPS, STARTED ON A FULL LIQ DIET. 1700 LABS AND EKG OBTAINED. PT ORIENTED TO CALL [facility], 2 SIDE RAILS UP AND CALL [facility] WITHIN REACH.
[2016-05-08 19:07] LABS: ABSOLUTE BASOPHIL COUNT 0 /CUMM (0.0-0.2); ABSOLUTE EOSINOPHIL COUNT 0 /CUMM (0.0-0.7); ABSOLUTE GRANULOCYTE CT 5.8 /CUMM (1.4-6.5); ABSOLUTE LYMPH COUNT 1.4 /CUMM (1.2-3.4); ABSOLUTE MONOCYTE COUNT 0.4 /CUMM (0.10-0.60); BASOPHIL % 0.4 % (0.0-2.0); EOSINOPHIL % 0.3 % (0-5); GRANULOCYTE % 75.6 % (42.2-75.2); HEMATOCRIT 31.3 % (42-52); MEAN CORPUSCULAR HGB CONC 33.2 G/DL (33.0-37.0); MEAN CORPUSCULAR VOLUME 87.4 FL (80.0-94.0); MEAN PLATELET VOLUME 8.7 FL (7.4-10.4); PLATELET COUNT 126 /CUMM (130-400); RBC DISTRIBUTION WIDTH 20.7 % (11.5-14.5); RED BLOOD CELL CT 3.59 /CUMM (4.70-6.10); WHITE BLOOD CELL COUNT 7.7 /CUMM (4.8-10.8)
[2016-05-09] VITALS: BP 120/60
--- NOTE | 2016-05-09 00:29 | NUR ---
PT ALERT AND ORIENTED, DENIES PAIN AT THIS TIME. MANUAL BP 120/60, LALA 60"S. HE HAS A LEFT CW AICD. ABDOMEN SOFT, NORMOACTIVE BS. NO BM SO FAR. SKIN INTACT.
[2016-05-09 05:15] LABS: PT 13.5 SEC (9.4-12.5)
[2016-05-09 05:16] LABS: ABSOLUTE BASOPHIL COUNT 0 /CUMM (0.0-0.2); ABSOLUTE EOSINOPHIL COUNT 0.1 /CUMM (0.0-0.7); ABSOLUTE GRANULOCYTE CT 3.3 /CUMM (1.4-6.5); ABSOLUTE LYMPH COUNT 1.3 /CUMM (1.2-3.4); ABSOLUTE MONOCYTE COUNT 0.4 /CUMM (0.10-0.60); BASOPHIL % 0.5 % (0.0-2.0); EOSINOPHIL % 1.6 % (0-5); GRANULOCYTE % 63.7 % (42.2-75.2); HEMATOCRIT 26.4 % (42-52); MEAN CORPUSCULAR HGB 29.8 PG (27.0-31.0); MEAN CORPUSCULAR HGB CONC 34.3 G/DL (33.0-37.0); MEAN CORPUSCULAR VOLUME 86.9 FL (80.0-94.0); MEAN PLATELET VOLUME 9.1 FL (7.4-10.4); PLATELET COUNT 100 /CUMM (130-400); RBC DISTRIBUTION WIDTH 20.8 % (11.5-14.5); RED BLOOD CELL CT 3.04 /CUMM (4.70-6.10); WHITE BLOOD CELL COUNT 5.2 /CUMM (4.8-10.8)
--- NOTE | 2016-05-09 05:58 | NUR ---
HGB/HCT 9.1/26.4. NO BM NOTED. RESULT REPORTED TO .
[2016-05-09 08:00] VITALS: BP 122/64
--- NOTE | 2016-05-09 08:28 | PN- Resident CRCU ---
See Addendum Subjective HPI/CRCU Issues: ICU for bloody diarrhea, weakness, and dizziness 7 days post colon polyps were removed Patient was seen and examined. No acute overnight events were reported by the patient or his nurse. Patient still feels dizzy when with standing. His orthostatic test show a drop of 10 end-systolic(no orthostatic hypotension). Patient denies any chest pain, palpitation, or shortness breath. He denies abdominal pain, nausea or vomiting. She is saturating well on room air. Objective Vital Signs & I&O Last 8 Hrs of Vitals and I&O: Intake & Output 05/09 1600 05/09 0800 05/09 0000 Intake Total 100 1080 Output Total 400 500 Balance -300 580 Intake, IV 0 Intake, Oral 100 1080 Number 0 Bowel Movements Output, Urine 400 500 Patient 92.986 kg Weight Laboratory Tests 05/09 05/08 05/08 0430 2250 1730 Chemistry Sodium (137 - 145 mmol/L) 139 Potassium (3.5 - 5.1 mmol/L) 4.0 Chloride (98 - 107 mmol/L) 110 H Carbon Dioxide (22 - 30 mmol/L) 26 Anion Gap (5 - 16) 2 L BUN (9 - 20 mg/dL) 33 H Creatinine (0.7 - 1.2 mg/dL) 1.1 Estimated GFR (>60 ml/min) > 60 Glucose (65 - 99 mg/dL) 80 Calcium (8.4 - 10.2 mg/dL) 8.1 L Phosphorus (2.5 - 4.5 mg/dL) 3.1 Magnesium (1.6 - 2.3 mg/dL) 2.0 Total Bilirubin (0.2 - 1.3 mg/dL) 1.2 AST (17 - 59 U/L) 19 ALT (21 - 72 U/L) 31 Troponin I (<0.11 ng/ml) 0.03 0.04 Albumin (3.5 - 5.0 g/dL) 2.8 L Coagulation PT (9.4 - 12.5 SEC) 13.5 H INR (0.90 - 1.17) 1.29 H Hematology CBC w Diff NO MAN DIFF REQ WBC (4.8 - 10.8 /CUMM) 5.2 RBC (4.70 - 6.10 /CUMM) 3.04 L Hgb (14.0 - 18.0 G/DL) 9.1 L Hct (42 - 52 %) 26.4 L MCV (80.0 - 94.0 FL) 86.9 MCH (27.0 - 31.0 PG) 29.8 RDW (11.5 - 14.5 %) 20.8 H Plt Count (130 - 400 /CUMM) 100 L MPV (7.4 - 10.4 FL) 9.1 Gran % (42.2 - 75.2 %) 63.7 Lymphocytes % (20.5 - 51.1 %) 25.7 Monocytes % (1.7 - 9.3 %) 8.5 Eosinophils % (0 - 5 %) 1.6 Basophils % (0.0 - 2.0 %) 0.5 Absolute Granulocytes (1.4 - 6.5 /CUMM) 3.3 Absolute Lymphocytes (1.2 - 3.4 /CUMM) 1.3 Absolute Monocytes (0.10 - 0.60 /CUMM) 0.4 Absolute Eosinophils (0.0 - 0.7 /CUMM) 0.1 Absolute Basophils (0.0 - 0.2 /CUMM) 0 PUBS MCHC (33.0 - 37.0 G/DL) 34.3 02/03 02/03 1730 1201 Chemistry Sodium (137 - 145 mmol/L) 140 139 Potassium (3.5 - 5.1 mmol/L) 4.6 4.7 Chloride (98 - 107 mmol/L) 109 H 108 H Carbon Dioxide (22 - 30 mmol/L) 24 23 Anion Gap (5 - 16) 7 8 BUN (9 - 20 mg/dL) 46 H 50 H Creatinine (0.7 - 1.2 mg/dL) 1.2 1.4 H Estimated GFR (>60 ml/min) > 60 50 L BUN/Creatinine Ratio (7 - 25 %) 35.7 H Glucose (65 - 99 mg/dL) 78 124 H Calcium (8.4 - 10.2 mg/dL) 8.3 L 8.9 Phosphorus (2.5 - 4.5 mg/dL) 3.3 Magnesium (1.6 - 2.3 mg/dL) 2.0 Iron (49 - 181 ug/dL) 63 TIBC (261 - 462 ug/dL) 352 Ferritin (17.9 - 464 ng/mL) 22.0 Total Bilirubin (0.2 - 1.3 mg/dL) 1.4 H 0.8 AST (17 - 59 U/L) 22 22 ALT (21 - 72 U/L) 35 31 Alkaline Phosphatase (< 127 U/L) 53 Troponin I (<0.11 ng/ml) 0.02 Total Protein (6.3 - 8.2 g/dL) 5.6 L Albumin (3.5 - 5.0 g/dL) 3.2 L 3.4 L Globulin (1.9 - 4.2 gm/dL) 2.2 Albumin/Globulin Ratio (1.1 - 2.2 %) 1.5 Coagulation PT (9.4 - 12.5 SEC) 14.7 H INR (0.90 - 1.17) 1.40 H Hematology CBC w Diff NO MAN DIFF REQ WBC (4.8 - 10.8 /CUMM) 7.7 RBC (4.70 - 6.10 /CUMM) 3.59 L Hgb (14.0 - 18.0 G/DL) 10.4 L Hct (42 - 52 %) 31.3 L MCV (80.0 - 94.0 FL) 87.4 MCH (27.0 - 31.0 PG) 29.0 RDW (11.5 - 14.5 %) 20.7 H Plt Count (130 - 400 /CUMM) 126 L MPV (7.4 - 10.4 FL) 8.7 Gran % (42.2 - 75.2 %) 75.6 H Lymphocytes % (20.5 - 51.1 %) 18.0 L Monocytes % (1.7 - 9.3 %) 5.7 Eosinophils % (0 - 5 %) 0.3 Basophils % (0.0 - 2.0 %) 0.4 Absolute Granulocytes (1.4 - 6.5 /CUMM) 5.8 Absolute Lymphocytes (1.2 - 3.4 /CUMM) 1.4 Absolute Monocytes (0.10 - 0.60 /CUMM) 0.4 Absolute Eosinophils (0.0 - 0.7 /CUMM) 0 Absolute Basophils (0.0 - 0.2 /CUMM) 0 PUBS MCHC (33.0 - 37.0 G/DL) 33.2 Toxicology Digoxin (0.8 - 2.0 ng/mL) 0.7 L 05/08 1128 Hematology CBC w Diff NO MAN DIFF REQ WBC (4.8 - 10.8 /CUMM) 7.0 RBC (4.70 - 6.10 /CUMM) 3.19 L Hgb (14.0 - 18.0 G/DL) 9.3 L Hct (42 - 52 %) 27.8 L MCV (80.0 - 94.0 FL) 87.2 MCH (27.0 - 31.0 PG) 29.2 RDW (11.5 - 14.5 %) 21.6 H Plt Count (130 - 400 /CUMM) 140 MPV (7.4 - 10.4 FL) 8.6 Gran % (42.2 - 75.2 %) 78.9 H Lymphocytes % (20.5 - 51.1 %) 16.5 L Monocytes % (1.7 - 9.3 %) 3.7 Eosinophils % (0 - 5 %) 0.6 Basophils % (0.0 - 2.0 %) 0.3 Absolute Granulocytes (1.4 - 6.5 /CUMM) 5.5 Absolute Lymphocytes (1.2 - 3.4 /CUMM) 1.2 Absolute Monocytes (0.10 - 0.60 /CUMM) 0.3 Absolute Eosinophils (0.0 - 0.7 /CUMM) 0 Absolute Basophils (0.0 - 0.2 /CUMM) 0 PUBS MCHC (33.0 - 37.0 G/DL) 33.5 Exam General Appearance: well developed/nourished, no apparent distress, alert, awake , comfortable Head: atraumatic, normal appearance Neck: normal inspection Respiratory: normal breath sounds, chest non-tender, no respiratory distress Cardiovascular: regular rate/rhythm Gastrointestinal: normal bowel sounds, soft, non-tender Extremities: normal inspection, no edema Cranial Nerves: normal speech Current Medications: Current Medications Sig/Camron Start time Last Medication Dose Route Stop Time Status Admin Acetaminophen 650 MG Q6P PRN 05/08 1800 AC 05/09 PO 0914 Acetaminophen 1,000 MG Q6P PRN 05/08 1800 AC IV Morphine Sulfate 1 MG Q6-PRN PRN 05/08 1800 AC IV Omeprazole 40 MG DAILY AC 05/09 0700 AC 05/09 PO 0643 Pantoprazole Sodium 0 .STK-MED ONE 05/08 1349 DC IV Pantoprazole Sodium 40 MG DAILY 05/08 1337 DC 05/08 IV 1351 Sodium Chloride 1,000 ML BOLUS ONE 05/08 1215 DC 05/08 IV 05/08 1314 1130 Impression/Plan Impression/Problem List Impression: Assessment: 70/M with PMH of Homa on Xarelto who underwent a colonoscopy a week ago and presented to [facility] Wednesday with complaints of bright blood per rectum. Assessment and plan 1. Bright blood per rectum/bloody diarrhea/weakness/dizziness Patient is on Xarelto for Homa, he underwent a colonoscopy a week ago, according to the patient he held Xarelto for 48 hours. Patient now presented with anemia associated with symptom and sign suggestive of hypovolemia(low BP, weakness and dizziness). Post to packed RBCs transfusion patient vitals and H&H are stable. GI comminuted normal colonoscopy right now. patient will be downgraded to telemetry. Guaiac-positive today. * We will advance his diet * will DC PPI IV * Xarelto and antihypertensive will be on hold for now. * GI is on board, we'll follow their recommendation * Notify GI for signs of hemodynamically significant bleeding 2.Normocytic anemia Hemoglobin on November 2015 was 14, on February 2016 his hemoglobin dropped to 9.5. Old records indicate that since February 18 his hemoglobin has been around 9.5. We don't have enough records about this patient, but maybe this is not the first GI bleeding. Patient is on iron supplement which can turn stool dark. 3.ST abnormalities on EKG Patient EKG showed some ST elevation and depression. Did not really change from his previous EKG. STEMI and NSTEMI must be ruled out given the fact that we cannot count on the EKG. acute coronary syndrome was ruled out with serial troponins and EKG. 4.DOROTHY Cr baseline is 1, On admission his creatinine is 1.4. BUN/creatinine ratio of 35.7, this is most likely prerenal in nature. Given the history of bleeding, this patient most likely has DOROTHY 2/2 hypovolemia. He was started on IV fluids, after which his creatinine went back to 1.1 * Patient will receive IV fluid until he can tolerate oral intake * Patient will receive blood transfusion when necessary * Lisinopril and furosemide both on hold * Renal function will be repeated daily 5. A. evangelista * Xarelto on hold * We will keep potassium more than 4 and magnesium more than 2. * Metoprolol will be in hold his of hypotension. 6.CHF with ICD implanted * Strict input and output * We will continue Digoxin * We will continue Spironolacton * Furosemide on hold(DOROTHY and hypotention) 7.HTN * Antihypertensive will be on hold until his blood pressure is stable * Entresto on hold * Metoprolol on hold 8.HLD * His statin will be held because of very low LDL DVT: ALPS only for now Diet: Full liquid CODE STATUS: Full code Problem List: 1. GI bleed Pain Ratin Tomorrow's Labs & Rationales: cbc and icu bundle Plan DVT/Prophylaxis: mechanical, pharmacological
[2016-05-09 09:00] VITALS: BP 122/64
--- NOTE | 2016-05-09 09:42 | NUR ---
@0800-PT ALERT AND ORIENTED, CALM AND COOP. VSS. DENIES PAIN/SOB. CONT ON RA, O2SAT 96-98%. LUNGS CLEAR. AFIB-(CHRONIC). HR 60-80S. BP STABLE. AICD NOTED TO LCW. CLEAR LIQ DIET PROVIDED, MARCIN WELL. LAST BM 05/08/16. PT VOIDED ADEQUATE AMTS OF URINE IN URINAL. SKIN INTACT. ALPS IN PLACE. H/H 9.1, 26.4 THIS AM. PLAT 100. REPEAT CBC NOTED FOR 1700. CONT TO MONITOR, CALL BONY CHAPA.
--- NOTE | 2016-05-09 09:44 | NUR ---
@0900-ORTHO BPS DONE AT THIS TIME. PT C/O MILD LIGHTHEADEDNESS DURING ORTHO BP READINGS. LYING-BP 110/50, HR 60 SITTING-BP 100/50, HR 74 STANDING-BP 90/60, HR 72 REPORTED ABOVE FINDINGS TO HOUSESTAFF. PT ASSISTED TO CHAIR AT BEDSIDE. C/O MILD HEADACHE-MEDICATED WITH PRN TYELENOL PO. CONT TO MONITOR CLOSELY. CALL [facility]T WITHIN REACH.
--- NOTE | 2016-05-09 10:24 | PN- Pulmonary ---
Subjective HPI/Critical Care Issues: Doing much better. Afebrile. No further bowel movements noted. In sinus rhythm with paroxysmal atrial fibrillation. Saturating well. No abdominal pain, no diarrhea. No bowel movement since he came in. Adequate urine output. Review of symptoms otherwise and unremarkable. No nausea vomiting. Objective Current Medications: Current Medications Sig/Camrno Start time Last Medication Dose Route Stop Time Status Admin Acetaminophen 650 MG Q6P PRN 05/08 1800 AC 05/09 PO 0914 Acetaminophen 1,000 MG Q6P PRN 05/08 1800 AC IV Morphine Sulfate 1 MG Q6-PRN PRN 05/08 1800 AC IV Omeprazole 40 MG DAILY AC 05/09 0700 AC 05/09 PO 0643 Pantoprazole Sodium 0 .STK-MED ONE 05/08 1349 DC IV Pantoprazole Sodium 40 MG DAILY 05/08 1337 DC 05/08 IV 1351 Sodium Chloride 1,000 ML BOLUS ONE 05/08 1215 DC 05/08 IV / 1314 1130 Vital signs reviewed, unremarkable. Significant data creatinine is improved to 1.1, anion gap is 2. Magnesium normal hemoglobin has been stable. 9.1 platelets are slightly low today which is 100. INR was 1.29 Vital Signs & I&O Last 24 Hrs of Vitals and I&O: Vital Signs Date Time Temp Pulse Resp B/P Pulse O2 O2 Flow FiO2 Ox Delivery Rate / 0900 71 122/64 02/ 0800 97.7 71 16 122/64 100 Room Air / 0400 96 Room Air 02/ 0000 97 Room Air 02/ 0000 98.0 60 16 120/60 97 Room Air 02/ 1931 99 Room Air 02/ 1720 99 Room Air 02/ 1550 98.4 74 18 133/59 100 Room Air 02/03 1530 97.1 70 16 132/59 100 Room Air 02/03 1433 75 18 142/63 100 Room Air 02/03 1345 97.1 93 18 102/58 100 Room Air 02/03 1314 96.8 91 18 101/58 100 Room Air 02/03 1212 87 109/55 02/03 1207 92 20 95/59 99 Room Air 02/ 1130 100 02/ 1104 99 Room Air 02/ 1055 95.5 88 18 103/55 Intake & Output /04 1600 02/04 0800 02/ 0000 Intake Total 100 1080 Output Total 400 500 Balance -300 580 Intake, IV 0 Intake, Oral 100 1080 Number 0 Bowel Movements Output, Urine 400 500 Patient 205 lb Weight Laboratory Tests 05/09 05/08 05/08 0430 2250 1730 Chemistry Sodium (137 - 145 mmol/L) 139 Potassium (3.5 - 5.1 mmol/L) 4.0 Chloride (98 - 107 mmol/L) 110 H Carbon Dioxide (22 - 30 mmol/L) 26 Anion Gap (5 - 16) 2 L BUN (9 - 20 mg/dL) 33 H Creatinine (0.7 - 1.2 mg/dL) 1.1 Estimated GFR (>60 ml/min) > 60 Glucose (65 - 99 mg/dL) 80 Calcium (8.4 - 10.2 mg/dL) 8.1 L Phosphorus (2.5 - 4.5 mg/dL) 3.1 Magnesium (1.6 - 2.3 mg/dL) 2.0 Total Bilirubin (0.2 - 1.3 mg/dL) 1.2 AST (17 - 59 U/L) 19 ALT (21 - 72 U/L) 31 Troponin I (<0.11 ng/ml) 0.03 0.04 Albumin (3.5 - 5.0 g/dL) 2.8 L Coagulation PT (9.4 - 12.5 SEC) 13.5 H INR (0.90 - 1.17) 1.29 H Hematology CBC w Diff NO MAN DIFF REQ WBC (4.8 - 10.8 /CUMM) 5.2 RBC (4.70 - 6.10 /CUMM) 3.04 L Hgb (14.0 - 18.0 G/DL) 9.1 L Hct (42 - 52 %) 26.4 L MCV (80.0 - 94.0 FL) 86.9 MCH (27.0 - 31.0 PG) 29.8 RDW (11.5 - 14.5 %) 20.8 H Plt Count (130 - 400 /CUMM) 100 L MPV (7.4 - 10.4 FL) 9.1 Gran % (42.2 - 75.2 %) 63.7 Lymphocytes % (20.5 - 51.1 %) 25.7 Monocytes % (1.7 - 9.3 %) 8.5 Eosinophils % (0 - 5 %) 1.6 Basophils % (0.0 - 2.0 %) 0.5 Absolute Granulocytes (1.4 - 6.5 /CUMM) 3.3 Absolute Lymphocytes (1.2 - 3.4 /CUMM) 1.3 Absolute Monocytes (0.10 - 0.60 /CUMM) 0.4 Absolute Eosinophils (0.0 - 0.7 /CUMM) 0.1 Absolute Basophils (0.0 - 0.2 /CUMM) 0 PUBS MCHC (33.0 - 37.0 G/DL) 34.3 02/05/08 1730 1201 Chemistry Sodium (137 - 145 mmol/L) 140 139 Potassium (3.5 - 5.1 mmol/L) 4.6 4.7 Chloride (98 - 107 mmol/L) 109 H 108 H Carbon Dioxide (22 - 30 mmol/L) 24 23 Anion Gap (5 - 16) 7 8 BUN (9 - 20 mg/dL) 46 H 50 H Creatinine (0.7 - 1.2 mg/dL) 1.2 1.4 H Estimated GFR (>60 ml/min) > 60 50 L BUN/Creatinine Ratio (7 - 25 %) 35.7 H Glucose (65 - 99 mg/dL) 78 124 H Calcium (8.4 - 10.2 mg/dL) 8.3 L 8.9 Phosphorus (2.5 - 4.5 mg/dL) 3.3 Magnesium (1.6 - 2.3 mg/dL) 2.0 Iron (49 - 181 ug/dL) 63 TIBC (261 - 462 ug/dL) 352 Ferritin (17.9 - 464 ng/mL) 22.0 Total Bilirubin (0.2 - 1.3 mg/dL) 1.4 H 0.8 AST (17 - 59 U/L) 22 22 ALT (21 - 72 U/L) 35 31 Alkaline Phosphatase (< 127 U/L) 53 Troponin I (<0.11 ng/ml) 0.02 Total Protein (6.3 - 8.2 g/dL) 5.6 L Albumin (3.5 - 5.0 g/dL) 3.2 L 3.4 L Globulin (1.9 - 4.2 gm/dL) 2.2 Albumin/Globulin Ratio (1.1 - 2.2 %) 1.5 Coagulation PT (9.4 - 12.5 SEC) 14.7 H INR (0.90 - 1.17) 1.40 H Hematology CBC w Diff NO MAN DIFF REQ WBC (4.8 - 10.8 /CUMM) 7.7 RBC (4.70 - 6.10 /CUMM) 3.59 L Hgb (14.0 - 18.0 G/DL) 10.4 L Hct (42 - 52 %) 31.3 L MCV (80.0 - 94.0 FL) 87.4 MCH (27.0 - 31.0 PG) 29.0 RDW (11.5 - 14.5 %) 20.7 H Plt Count (130 - 400 /CUMM) 126 L MPV (7.4 - 10.4 FL) 8.7 Gran % (42.2 - 75.2 %) 75.6 H Lymphocytes % (20.5 - 51.1 %) 18.0 L Monocytes % (1.7 - 9.3 %) 5.7 Eosinophils % (0 - 5 %) 0.3 Basophils % (0.0 - 2.0 %) 0.4 Absolute Granulocytes (1.4 - 6.5 /CUMM) 5.8 Absolute Lymphocytes (1.2 - 3.4 /CUMM) 1.4 Absolute Monocytes (0.10 - 0.60 /CUMM) 0.4 Absolute Eosinophils (0.0 - 0.7 /CUMM) 0 Absolute Basophils (0.0 - 0.2 /CUMM) 0 PUBS MCHC (33.0 - 37.0 G/DL) 33.2 Toxicology Digoxin (0.8 - 2.0 ng/mL) 0.7 L 05/08 1128 Hematology CBC w Diff NO MAN DIFF REQ WBC (4.8 - 10.8 /CUMM) 7.0 RBC (4.70 - 6.10 /CUMM) 3.19 L Hgb (14.0 - 18.0 G/DL) 9.3 L Hct (42 - 52 %) 27.8 L MCV (80.0 - 94.0 FL) 87.2 MCH (27.0 - 31.0 PG) 29.2 RDW (11.5 - 14.5 %) 21.6 H Plt Count (130 - 400 /CUMM) 140 MPV (7.4 - 10.4 FL) 8.6 Gran % (42.2 - 75.2 %) 78.9 H Lymphocytes % (20.5 - 51.1 %) 16.5 L Monocytes % (1.7 - 9.3 %) 3.7 Eosinophils % (0 - 5 %) 0.6 Basophils % (0.0 - 2.0 %) 0.3 Absolute Granulocytes (1.4 - 6.5 /CUMM) 5.5 Absolute Lymphocytes (1.2 - 3.4 /CUMM) 1.2 Absolute Monocytes (0.10 - 0.60 /CUMM) 0.3 Absolute Eosinophils (0.0 - 0.7 /CUMM) 0 Absolute Basophils (0.0 - 0.2 /CUMM) 0 PUBS MCHC (33.0 - 37.0 G/DL) 33.5 Microbiology Date/Time Procedure - Status Source Growth 05/08 1730 Surveillance Culture - RECD GI 05/08 1700 Surveillance Culture - RECD UPPER RESP Impression/Plan Impression/Plan Impression/Plan: Physical Exam General Appearance: alert, awake Head: atraumatic, normal appearance Eyes: Bilateral: PERRL, EOMI, other (pale conjunctiva). Ears, Nose, Throat, Mouth: hearing grossly normal, moist mucous membrane Neck: normal inspection, supple, full range of motion Respiratory: normal breath sounds, chest non-tender, no respiratory distress, lungs clear Cardiovascular: irregularly irregular Gastrointestinal: normal bowel sounds, soft, non-tender Rectal: small amount of bright red blood in rectal vault. No external hemorrhoids, no palpable internal hemorrhoid Back: normal inspection, normal range of motion Extremities: normal range of motion Neurologic/Psych: no motor/sensory deficits, awake, alert, oriented x 3 Skin: intact, warm/dry IMPRESSION This is a gentleman with recent colonoscopy with 2 large polyps which was removed, atrial fibrillation on anticoagulation with Xeralto, previous history of ischemic heart disease, cardiomyopathy, previous history of soft palate malignancy status post resection, chemotherapy, radiation 9 years ago, 20-pack- year smoking history with on and off cigar use, now comes in with * Resolving lower GI bleed with initial hemodynamic instability which is resolved after he was given intravenous fluids. Most likely source of his GI bleed is probably bleeding from his polyp removal site. Differential diagnoses include diverticular bleed versus hemorrhoidal bleed as patient is on Xeralto with internal hemorroids. patient has had no significant bowel movement since he came in here * REcent watery diarrhea prior to gi bleed, rule out any other causes of diarrhea * Stable hemoglobin ( since the last hemoglobin done in February.) * Atrial fibrillation with ischemic cardiomyopathy with probable low ejection fraction on Xeralto which may have compounded his bleeding. * Mild chronic kidney disease with slight worsening of his renal function upon admission now reverting back to normal * Chronic venous insufficiency with varicose veins with no evidence suggestive of active venous thromboembolism as he was already on anticoagulation with chronic leg edema. * Hypertension hyperlipidemia * Small internal hemorrhoids and sigmoid diverticulosis in the past. RECOMMENDATION * Follow hemoglobin, hematocrit, every 12 hours * Follow his stool. * GI consult noted diet per GI * once the blood pressure slowly comes up start resuming his outpatient medications. If His heart rate is stable then Hold digoxin for now * Hold Xeralto * Follow his EKG If no further bowel movement, and no further GI bleed. Patient can be transferred to the telemetry floor.
--- NOTE | 2016-05-09 10:50 | PN- Gastroenterology ---
Assessment/Plan Assessment/Recommendations: Assessment: Mr. Hollins is a 70 year old male with atrial fibrillation on xarelto who underwent a colonoscopy last week during which time two large right sided colonic polyps were removed who presents now with a few episodes of bright red blood per rectum which is quite likely secondary to a post polypectomy bleed and exacerbated by the xarelto. His hgb is stable from when he was first found to be anemic and it has remained stable since admission so as he has not had any further rectal bleeding it appears to have clinically stopped with just holding the xarelto and I am hopeful that he will be able to be discharged home shortly without repeat endoscopic intervention being necessary. Recommendations: 1. Ok to downgrade to telemetry 2. Follow CBC q12 hours and transfuse as needed to keep hgb > 8 or as per cardiology recommendations. 3. Continue to hold Xarelto and nsaids for now and would recommend holding it for at least an additional 48 hours before restarting it 4. Notify GI for signs of hemodynamically significant bleeding 5. Advance diet as tolerated 6. D/c iv protonix 7. If he remains without signs of active bleeding would consider d/c home in 24 -48 hours and he can restart the xarelto as an outpatient. I will continue to follow this patient and make further recommendations based on her clinical course and results of repeat blood work. Problem List: 1. GI bleed Subjective Subjective: Pt still has some lightheadedness, but he has not had any further bowel movements since admission. he is without any abdominal pain or vomiting. he is tolerating a liquid diet. Objective Vital Signs and I&Os Vital Signs Date Time Temp Pulse Resp B/P Pulse O2 O2 Flow FiO2 Ox Delivery Rate 02/04 0900 71 122/64 02/04 0800 97.7 71 16 122/64 100 Room Air 02/04 0400 96 Room Air 02/04 0000 97 Room Air 02/04 0000 98.0 60 16 120/60 97 Room Air 02/03 1931 99 Room Air 02/03 1720 99 Room Air 02/03 1550 98.4 74 18 133/59 100 Room Air 02/03 1530 97.1 70 16 132/59 100 Room Air 02/03 1433 75 18 142/63 100 Room Air 02/03 1345 97.1 93 18 102/58 100 Room Air 02/03 1314 96.8 91 18 101/58 100 Room Air 05/08 1212 87 109/55 / 1207 92 20 95/59 99 Room Air 05/08 1130 100 05/08 1104 99 Room Air 05/08 1055 95.5 88 18 103/55 Intake & Output 05/09 1600 05/09 0400 05/08 1600 05/08 0400 05/07 1600 05/07 0400 Intake Total 100 1080 2000 Output Total 400 500 Balance -992 999 4950 Intake, IV 0 2000 Intake, Oral 100 1080 Number 0 Bowel Movements Output, Urine 400 500 Patient 205 lb 200 lb Weight Physical Exam General Appearance: well developed/nourished, no apparent distress, comfortable Head: atraumatic Ears, Nose, Throat: normal pharynx, normal ENT inspection Neck: normal inspection, supple Respiratory: normal breath sounds, chest non-tender Cardiovascular: regular rate/rhythm Abdomen: normal bowel sounds, soft, non-tender Rectal: deferred Back: normal inspection Extremities: normal inspection, no edema Neurologic/Psychiatric: no motor/sensory deficits, awake, alert, oriented x 3 Current Medications: Current Medications Sig/Camron Start time Last Medication Dose Route Stop Time Status Admin Acetaminophen 650 MG Q6P PRN 05/08 1800 AC 05/09 PO 0914 Acetaminophen 1,000 MG Q6P PRN 05/08 1800 AC IV Morphine Sulfate 1 MG Q6-PRN PRN 05/08 1800 AC IV Omeprazole 40 MG DAILY AC 05/09 0700 AC 05/09 PO 0643 Pantoprazole Sodium 0 .STK-MED ONE 05/08 1349 DC IV Pantoprazole Sodium 40 MG DAILY 05/08 1337 DC 05/08 IV 1351 Sodium Chloride 1,000 ML BOLUS ONE 05/08 1215 DC 02/ IV 05/08 1314 1130 Results Pertinent Lab Results: Laboratory Tests 05/09 05/08 05/08 0430 2250 1730 Chemistry Sodium (137 - 145 mmol/L) 139 Potassium (3.5 - 5.1 mmol/L) 4.0 Chloride (98 - 107 mmol/L) 110 H Carbon Dioxide (22 - 30 mmol/L) 26 Anion Gap (5 - 16) 2 L BUN (9 - 20 mg/dL) 33 H Creatinine (0.7 - 1.2 mg/dL) 1.1 Estimated GFR (>60 ml/min) > 60 Glucose (65 - 99 mg/dL) 80 Calcium (8.4 - 10.2 mg/dL) 8.1 L Phosphorus (2.5 - 4.5 mg/dL) 3.1 Magnesium (1.6 - 2.3 mg/dL) 2.0 Total Bilirubin (0.2 - 1.3 mg/dL) 1.2 AST (17 - 59 U/L) 19 ALT (21 - 72 U/L) 31 Troponin I (<0.11 ng/ml) 0.03 0.04 Albumin (3.5 - 5.0 g/dL) 2.8 L Coagulation PT (9.4 - 12.5 SEC) 13.5 H INR (0.90 - 1.17) 1.29 H Hematology CBC w Diff NO MAN DIFF REQ WBC (4.8 - 10.8 /CUMM) 5.2 RBC (4.70 - 6.10 /CUMM) 3.04 L Hgb (14.0 - 18.0 G/DL) 9.1 L Hct (42 - 52 %) 26.4 L MCV (80.0 - 94.0 FL) 86.9 MCH (27.0 - 31.0 PG) 29.8 RDW (11.5 - 14.5 %) 20.8 H Plt Count (130 - 400 /CUMM) 100 L MPV (7.4 - 10.4 FL) 9.1 Gran % (42.2 - 75.2 %) 63.7 Lymphocytes % (20.5 - 51.1 %) 25.7 Monocytes % (1.7 - 9.3 %) 8.5 Eosinophils % (0 - 5 %) 1.6 Basophils % (0.0 - 2.0 %) 0.5 Absolute Granulocytes (1.4 - 6.5 /CUMM) 3.3 Absolute Lymphocytes (1.2 - 3.4 /CUMM) 1.3 Absolute Monocytes (0.10 - 0.60 /CUMM) 0.4 Absolute Eosinophils (0.0 - 0.7 /CUMM) 0.1 Absolute Basophils (0.0 - 0.2 /CUMM) 0 PUBS MCHC (33.0 - 37.0 G/DL) 34.3 /06 04/ 1730 1201 Chemistry Sodium (137 - 145 mmol/L) 140 139 Potassium (3.5 - 5.1 mmol/L) 4.6 4.7 Chloride (98 - 107 mmol/L) 109 H 108 H Carbon Dioxide (22 - 30 mmol/L) 24 23 Anion Gap (5 - 16) 7 8 BUN (9 - 20 mg/dL) 46 H 50 H Creatinine (0.7 - 1.2 mg/dL) 1.2 1.4 H Estimated GFR (>60 ml/min) > 60 50 L BUN/Creatinine Ratio (7 - 25 %) 35.7 H Glucose (65 - 99 mg/dL) 78 124 H Calcium (8.4 - 10.2 mg/dL) 8.3 L 8.9 Phosphorus (2.5 - 4.5 mg/dL) 3.3 Magnesium (1.6 - 2.3 mg/dL) 2.0 Iron (49 - 181 ug/dL) 63 TIBC (261 - 462 ug/dL) 352 Ferritin (17.9 - 464 ng/mL) 22.0 Total Bilirubin (0.2 - 1.3 mg/dL) 1.4 H 0.8 AST (17 - 59 U/L) 22 22 ALT (21 - 72 U/L) 35 31 Alkaline Phosphatase (< 127 U/L) 53 Troponin I (<0.11 ng/ml) 0.02 Total Protein (6.3 - 8.2 g/dL) 5.6 L Albumin (3.5 - 5.0 g/dL) 3.2 L 3.4 L Globulin (1.9 - 4.2 gm/dL) 2.2 Albumin/Globulin Ratio (1.1 - 2.2 %) 1.5 Coagulation PT (9.4 - 12.5 SEC) 14.7 H INR (0.90 - 1.17) 1.40 H Hematology CBC w Diff NO MAN DIFF REQ WBC (4.8 - 10.8 /CUMM) 7.7 RBC (4.70 - 6.10 /CUMM) 3.59 L Hgb (14.0 - 18.0 G/DL) 10.4 L Hct (42 - 52 %) 31.3 L MCV (80.0 - 94.0 FL) 87.4 MCH (27.0 - 31.0 PG) 29.0 RDW (11.5 - 14.5 %) 20.7 H Plt Count (130 - 400 /CUMM) 126 L MPV (7.4 - 10.4 FL) 8.7 Gran % (42.2 - 75.2 %) 75.6 H Lymphocytes % (20.5 - 51.1 %) 18.0 L Monocytes % (1.7 - 9.3 %) 5.7 Eosinophils % (0 - 5 %) 0.3 Basophils % (0.0 - 2.0 %) 0.4 Absolute Granulocytes (1.4 - 6.5 /CUMM) 5.8 Absolute Lymphocytes (1.2 - 3.4 /CUMM) 1.4 Absolute Monocytes (0.10 - 0.60 /CUMM) 0.4 Absolute Eosinophils (0.0 - 0.7 /CUMM) 0 Absolute Basophils (0.0 - 0.2 /CUMM) 0 PUBS MCHC (33.0 - 37.0 G/DL) 33.2 Toxicology Digoxin (0.8 - 2.0 ng/mL) 0.7 L 05/08 1128 Hematology CBC w Diff NO MAN DIFF REQ WBC (4.8 - 10.8 /CUMM) 7.0 RBC (4.70 - 6.10 /CUMM) 3.19 L Hgb (14.0 - 18.0 G/DL) 9.3 L Hct (42 - 52 %) 27.8 L MCV (80.0 - 94.0 FL) 87.2 MCH (27.0 - 31.0 PG) 29.2 RDW (11.5 - 14.5 %) 21.6 H Plt Count (130 - 400 /CUMM) 140 MPV (7.4 - 10.4 FL) 8.6 Gran % (42.2 - 75.2 %) 78.9 H Lymphocytes % (20.5 - 51.1 %) 16.5 L Monocytes % (1.7 - 9.3 %) 3.7 Eosinophils % (0 - 5 %) 0.6 Basophils % (0.0 - 2.0 %) 0.3 Absolute Granulocytes (1.4 - 6.5 /CUMM) 5.5 Absolute Lymphocytes (1.2 - 3.4 /CUMM) 1.2 Absolute Monocytes (0.10 - 0.60 /CUMM) 0.3 Absolute Eosinophils (0.0 - 0.7 /CUMM) 0 Absolute Basophils (0.0 - 0.2 /CUMM) 0 PUBS MCHC (33.0 - 37.0 G/DL) 33.5
--- NOTE | 2016-05-09 12:41 | NUR ---
@1200-PT DOWNGRADED TO TELE. DENIES PAIN. DIET INCREASED TO FULL LIQ, MARCIN WELL. AFIB HR 60S. BP STABLE. CONT TO MONITOR. REPEAT CBC AT 1700.
--- NOTE | 2016-05-09 15:49 | NUR ---
@1330-PT HAD BM, HAT IN TOILET. DARK IN COLOR. SEMILIQ CONSISTENCY. GUIAC POSITIVE. PT STATES: "MY STOMACH FEELS UNEASY, I THINK I ATE TOO FAST." CONT TO MONITOR CLOSELY. CALL [facility] WITHIN REACH.
[2016-05-09 16:00] VITALS: BP 112/52
[2016-05-09 18:11] LABS: ABSOLUTE BASOPHIL COUNT 0 /CUMM (0.0-0.2); ABSOLUTE EOSINOPHIL COUNT 0.1 /CUMM (0.0-0.7); ABSOLUTE GRANULOCYTE CT 2.9 /CUMM (1.4-6.5); ABSOLUTE MONOCYTE COUNT 0.4 /CUMM (0.10-0.60); BASOPHIL % 0.4 % (0.0-2.0); EOSINOPHIL % 2.1 % (0-5); GRANULOCYTE % 66.2 % (42.2-75.2); HEMATOCRIT 26.1 % (42-52); MEAN CORPUSCULAR HGB CONC 33.1 G/DL (33.0-37.0); MEAN CORPUSCULAR VOLUME 87.5 FL (80.0-94.0); MEAN PLATELET VOLUME 8.4 FL (7.4-10.4); PLATELET COUNT 94 /CUMM (130-400); RBC DISTRIBUTION WIDTH 20.7 % (11.5-14.5); RED BLOOD CELL CT 2.98 /CUMM (4.70-6.10); WHITE BLOOD CELL COUNT 4.4 /CUMM (4.8-10.8)
[2016-05-10 00:24] VITALS: BP 140/80
[2016-05-10 07:53] LABS: ABSOLUTE BASOPHIL COUNT 0 /CUMM (0.0-0.2); ABSOLUTE EOSINOPHIL COUNT 0.1 /CUMM (0.0-0.7); ABSOLUTE GRANULOCYTE CT 2.8 /CUMM (1.4-6.5); ABSOLUTE LYMPH COUNT 1.1 /CUMM (1.2-3.4); ABSOLUTE MONOCYTE COUNT 0.4 /CUMM (0.10-0.60); BASOPHIL % 0.5 % (0.0-2.0); EOSINOPHIL % 2.3 % (0-5); GRANULOCYTE % 62.5 % (42.2-75.2); HEMATOCRIT 26.5 % (42-52); MEAN CORPUSCULAR HGB CONC 32.9 G/DL (33.0-37.0); MEAN CORPUSCULAR VOLUME 88.1 FL (80.0-94.0); MEAN PLATELET VOLUME 8.2 FL (7.4-10.4); PLATELET COUNT 94 /CUMM (130-400); RBC DISTRIBUTION WIDTH 20.7 % (11.5-14.5); RED BLOOD CELL CT 3.01 /CUMM (4.70-6.10); WHITE BLOOD CELL COUNT 4.4 /CUMM (4.8-10.8)
[2016-05-10 08:17] VITALS: BP 130/72
[2016-05-10 15:31] VITALS: BP 110/68
--- NOTE | 2016-05-10 18:41 | PN- Pulmonary ---
Subjective HPI/Critical Care Issues: DOing well no further bleeding stable Objective Current Medications: Current Medications Sig/Camron Start time Last Medication Dose Route Stop Time Status Admin Acetaminophen 325 MG .STK-MED ONE 05/10 1002 DC PO 05/10 1003 Acetaminophen 650 MG .STK-MED ONE 05/10 0957 DC PO 05/10 0958 Acetaminophen 650 MG .STK-MED ONE 05/10 0357 DC PO 05/10 0358 Acetaminophen 650 MG .STK-MED ONE 05/09 2343 DC PO 05/09 2344 Acetaminophen 650 MG Q6P PRN 05/08 1800 AC 05/10 PO 1001 Acetaminophen 1,000 MG Q6P PRN 05/08 1800 AC IV Losartan Potassium 50 MG DAILY 05/10 1158 AC 05/10 PO 1349 Metoprolol Succinate 50 MG DAILY 05/10 1200 AC 05/10 PO 1349 Morphine Sulfate 1 MG Q6-PRN PRN 05/08 1800 AC IV Omeprazole 40 MG DAILY AC 05/09 0700 AC 05/10 PO 0652 Spironolactone 12.5 MG DAILY 05/10 1159 AC 05/10 PO 1350 Vital Signs & I&O Last 24 Hrs of Vitals and I&O: Vital Signs Date Time Temp Pulse Resp B/P Pulse O2 O2 Flow FiO2 Ox Delivery Rate 05/10 1531 97.5 64 18 110/68 99 Room Air 05/10 1349 130/68 05/10 1349 130/68 05/10 0817 97.6 70 18 130/72 99 Room Air / 0024 98.7 63 20 140/80 100 Room Air Intake & Output 05/10 1600 05/10 0800 05/10 0000 Intake Total 400 480 400 Output Total 525 1400 Balance Intake, Oral 400 480 400 Number 0 Bowel Movements Output, Urine 525 1400 Impression/Plan Impression/Plan Impression/Plan: Physical Exam General Appearance: alert, awake Head: atraumatic, normal appearance Eyes: Bilateral: PERRL, EOMI, other (pale conjunctiva). Ears, Nose, Throat, Mouth: hearing grossly normal, moist mucous membrane Neck: normal inspection, supple, full range of motion Respiratory: normal breath sounds, chest non-tender, no respiratory distress, lungs clear Cardiovascular: irregularly irregular Gastrointestinal: normal bowel sounds, soft, non-tender Rectal: small amount of bright red blood in rectal vault. No external hemorrhoids, no palpable internal hemorrhoid Back: normal inspection, normal range of motion Extremities: normal range of motion Neurologic/Psych: no motor/sensory deficits, awake, alert, oriented x 3 Skin: intact, warm/dry IMPRESSION This is a gentleman with recent colonoscopy with 2 large polyps which was removed, atrial fibrillation on anticoagulation with Xeralto, previous history of ischemic heart disease, cardiomyopathy, previous history of soft palate malignancy status post resection, chemotherapy, radiation 9 years ago, 20-pack- year smoking history with on and off cigar use, now comes in with * Resolving lower GI bleed with initial hemodynamic instability which is resolved after he was given intravenous fluids. Most likely source of his GI bleed is probably bleeding from his polyp removal site. Differential diagnoses include diverticular bleed versus hemorrhoidal bleed as patient is on Xeralto with internal hemorroids. patient has had no significant bowel movement since he came in here * REcent watery diarrhea prior to gi bleed, rule out any other causes of diarrhea * Stable hemoglobin ( since the last hemoglobin done in February.) * Atrial fibrillation with ischemic cardiomyopathy with probable low ejection fraction on Xeralto which may have compounded his bleeding. * Mild chronic kidney disease with slight worsening of his renal function upon admission now reverting back to normal * Chronic venous insufficiency with varicose veins with no evidence suggestive of active venous thromboembolism as he was already on anticoagulation with chronic leg edema. * Hypertension hyperlipidemia * Small internal hemorrhoids and sigmoid diverticulosis in the past. RECOMMENDATION * Follow hemoglobin, hematocrit, daily * Start meds at half the dose as out pt * IF stable in am will dc * Follow his stool. * Hold Xeralto
[2016-05-10 18:49] LABS: ABSOLUTE BASOPHIL COUNT 0 /CUMM (0.0-0.2); ABSOLUTE EOSINOPHIL COUNT 0.1 /CUMM (0.0-0.7); ABSOLUTE GRANULOCYTE CT 3.2 /CUMM (1.4-6.5); ABSOLUTE LYMPH COUNT 1.2 /CUMM (1.2-3.4); ABSOLUTE MONOCYTE COUNT 0.4 /CUMM (0.10-0.60); BASOPHIL % 0.7 % (0.0-2.0); GRANULOCYTE % 64.5 % (42.2-75.2); HEMATOCRIT 27.3 % (42-52); MEAN CORPUSCULAR HGB 29.1 PG (27.0-31.0); MEAN CORPUSCULAR HGB CONC 33.5 G/DL (33.0-37.0); MEAN CORPUSCULAR VOLUME 86.8 FL (80.0-94.0); MEAN PLATELET VOLUME 7.9 FL (7.4-10.4); PLATELET COUNT 121 /CUMM (130-400); RBC DISTRIBUTION WIDTH 20.1 % (11.5-14.5); RED BLOOD CELL CT 3.14 /CUMM (4.70-6.10)
--- NOTE | 2016-05-10 18:58 | PN- Housestaff ---
Subjective Follow-up For: GI Bleed Weakness Dizziness, 7 days post colon polyps were removed Tele-Events Since Last Visit: NSR with PAF, between 56 to 71 No overnight events Subjective: Patient feels really well, no chest pain, SOB, he has been walking to [facility] bathroom, no bleeding, but no bowel movement taoday. Looking forward to [employer]. Review of Systems Constitutional: Reports: see HPI. Cardiovascular: Reports: no symptoms. Respiratory: Reports: no symptoms. Gastrointestinal: Reports: no symptoms. Denies: bloody stool. Genitourinary: Reports: no symptoms. Musculoskeletal: Reports: no symptoms. Objective Last 24 Hrs of Vital Signs/I&O Vital Signs Date Time Temp Pulse Resp B/P Pulse O2 O2 Flow FiO2 Ox Delivery Rate 05/10 1531 97.5 64 18 110/68 99 Room Air 05/10 1349 130/68 05/10 1349 130/68 05/10 0817 97.6 70 18 130/72 99 Room Air 05/10 0024 98.7 63 20 140/80 100 Room Air Intake & Output 05/10 1600 05/10 0800 05/10 0000 Intake Total 400 480 400 Output Total 525 1400 Balance Intake, Oral 400 480 400 Number 0 Bowel Movements Output, Urine 525 1400 Physical Exam General Appearance: Alert, Oriented X3, Cooperative, No Acute Distress Neck: No JVD Cardiovascular: Normal S1, Normal S2, No Murmurs, regular with intermittently irregular Lungs: Clear to Auscultation, Normal Air Movement Abdomen: Normal Bowel Sounds, Soft, No Tenderness Current Medications: Current Medications Sig/Camron Start time Last Medication Dose Route Stop Time Status Admin Acetaminophen 325 MG .STK-MED ONE 05/10 1002 DC PO 05/10 1003 Acetaminophen 650 MG .STK-MED ONE 05/10 0957 DC PO 05/10 0958 Acetaminophen 650 MG .STK-MED ONE 05/10 0357 DC PO 05/10 0358 Acetaminophen 650 MG .STK-MED ONE 05/09 2343 DC PO 05/09 2344 Acetaminophen 650 MG Q6P PRN 05/08 1800 AC 05/10 PO 1001 Acetaminophen 1,000 MG Q6P PRN 05/08 1800 AC IV Losartan Potassium 50 MG DAILY 05/10 1158 AC 05/10 PO 1349 Metoprolol Succinate 50 MG DAILY 05/10 1200 AC 05/10 PO 1349 Morphine Sulfate 1 MG Q6-PRN PRN 05/08 1800 AC IV Omeprazole 40 MG DAILY AC 05/09 0700 AC 05/10 PO 0652 Spironolactone 12.5 MG DAILY 05/10 1159 AC 05/10 PO 1350 Last 24 Hrs of Lab/Williams Results Last 24 Hrs of Labs/Mics: Laboratory Tests 05/10/16 0640: Anion Gap 2 L, Estimated GFR > 60, Glucose 80, Calcium 8.6, Phosphorus 3.2, Magnesium 1.9, Total Bilirubin 0.6, AST 23, ALT 29, Albumin 2.9 L, CBC w Diff NO MAN DIFF REQ, RBC 3.01 L, MCV 88.1, MCH 29.0, RDW 20.7 H, MPV 8.2, Gran % 62.5, Lymphocytes % 25.7, Monocytes % 9.0, Eosinophils % 2.3, Basophils % 0.5, Absolute Granulocytes 2.8, Absolute Lymphocytes 1.1 L, Absolute Monocytes 0.4, Absolute Eosinophils 0.1, Absolute Basophils 0, PUBS MCHC 32.9 L Assessment/Plan Assessment: 70/M with PMH of Homa on Xarelto who underwent a colonoscopy a week prior to admission and presented to [facility] on 05/08/16 in the ICU with complaints of bright blood per rectum. Transferred from ICU to Tele on 05/09/16 Assessment and plan 1. Bright blood per rectum/bloody diarrhea/weakness/dizziness - Patient was on Xarelto for A.evangelista, he underwent a colonoscopy a week prior to admission, presented with anemia associated with symptom and sign suggestive of hypovolemia (low BP, weakness and dizziness). - S/P 2 packed RBCs transfusion - H/H stable at 8.7/26.5 - CBC Q12 per GI - Diet has been advanced to regular - Xarelto and antihypertensive will be on hold for now. - GI is on board 2. Normocytic anemia Hemoglobin on November 2015 was 14, on February 2016 his hemoglobin dropped to 9.5. Old records indicate that since February 18 his hemoglobin has been around 9.5. - now post BRBPR - H/H stable at 8.7/26.[address] abnormalities on EKG Patient EKG showed some ST elevation and depression, no real change from his previous EKG. - Serial trops are negative 4. DOROTHY - Baseline Cr is 1 - On admission his creatinine is 1.4. - BUN/creatinine ratio of 35.7, this is most likely prerenal in nature. - Given the history of bleeding, this patient most likely has DOROTHY 2/2 hypovolemia and GI Bleed - He was started on IV fluids, after which his creatinine went back to 1.1 - Lisinopril and furosemide both on hold, may start at half dose as out patient 5. A. fib - Xarelto on hold - We will keep potassium more than 4 and magnesium more than 2. - Metoprolol held 6.CHF with ICD implanted - continue Digoxin - continue Spironolacton - Furosemide on hold (DOROTHY and hypotention) 7.HTN - 110/68 in am today - Entresto on hold - Metoprolol on hold DVT: ALPS only for now Diet: Regular CODE STATUS: Full code Problem List: 1. Acute electrocardiogram changes 2. GI bleed Pain Ratin Pain Location: no pain Pain Goal: Remain pain free Pain Plan: PRN Tylenol Tomorrow's Labs & Rationales: cbc - monitor h/h DVT/Prophylaxis: mechanical
[2016-05-11 08:06] LABS: ABSOLUTE BASOPHIL COUNT 0 /CUMM (0.0-0.2); ABSOLUTE EOSINOPHIL COUNT 0.1 /CUMM (0.0-0.7); ABSOLUTE GRANULOCYTE CT 3.2 /CUMM (1.4-6.5); ABSOLUTE LYMPH COUNT 1.3 /CUMM (1.2-3.4); ABSOLUTE MONOCYTE COUNT 0.5 /CUMM (0.10-0.60); BASOPHIL % 0.7 % (0.0-2.0); EOSINOPHIL % 2.4 % (0-5); GRANULOCYTE % 62.5 % (42.2-75.2); HEMATOCRIT 24.4 % (42-52); MEAN CORPUSCULAR HGB 29.7 PG (27.0-31.0); MEAN CORPUSCULAR HGB CONC 33.6 G/DL (33.0-37.0); MEAN CORPUSCULAR VOLUME 88.3 FL (80.0-94.0); MEAN PLATELET VOLUME 8.1 FL (7.4-10.4); PLATELET COUNT 107 /CUMM (130-400); RBC DISTRIBUTION WIDTH 20.4 % (11.5-14.5); RED BLOOD CELL CT 2.76 /CUMM (4.70-6.10); WHITE BLOOD CELL COUNT 5.1 /CUMM (4.8-10.8)
--- NOTE | 2016-05-11 08:23 | PN- Housestaff ---
Subjective Follow-up For: -GI bleed Complaints: no complaints Tele-Events Since Last Visit: no overnight events Subjective: I have seen and examinedthe patient. He is stable, no more bloody BM h/h stable. toelrated advaced diet. Review of Systems Constitutional: Reports: see HPI. Objective Last 24 Hrs of Vital Signs/I&O Vital Signs Date Time Temp Pulse Resp B/P Pulse O2 O2 Flow FiO2 Ox Delivery Rate 05/11 1050 124/60 05/11 1050 124/60 05/11 0834 97.6 52 18 114/64 100 Room Air Intake & Output 05/11 1600 05/11 0800 05/11 0000 Intake Total 100 100 Output Total Balance 100 100 Intake, Oral 100 100 Physical Exam General Appearance: Alert, Oriented X3, Cooperative, No Acute Distress Skin: No Rashes, No Breakdown, No Significant Lesion HEENT: Atraumatic, PERRLA, EOMI Neck: Supple, No JVD Cardiovascular: Normal S1, Normal S2, No Murmurs Lungs: Clear to Auscultation, Normal Air Movement Abdomen: Normal Bowel Sounds, Soft, No Tenderness Neurological: Strength at 5/5 X4 Ext, Normal Tone, Sensation Intact, Cranial Nerves 3-12 NL, Reflexes 2+ Extremities: No Clubbing, No Cyanosis, No Edema, Normal Pulses Vascular: Normal Pulses Last 24 Hrs of Lab/Williams Results Last 24 Hrs of Labs/Mics: Laboratory Tests 05/11/16 1140: CBC w Diff NO MAN DIFF REQ, RBC 2.97 L, MCV 88.1, MCH 29.6, RDW 20.4 H, MPV 8.1, Gran % 71.0, Lymphocytes % 18.7 L, Monocytes % 8.2, Eosinophils % 1.5, Basophils % 0.6, Absolute Granulocytes 4.0, Absolute Lymphocytes 1.1 L, Absolute Monocytes 0.5, Absolute Eosinophils 0.1, Absolute Basophils 0, PUBS MCHC 33.5 05/11/16 0620: CBC w Diff NO MAN DIFF REQ, RBC 2.76 L, MCV 88.3, MCH 29.7, RDW 20.4 H, MPV 8.1, Gran % 62.5, Lymphocytes % 25.1, Monocytes % 9.3, Eosinophils % 2.4, Basophils % 0.7, Absolute Granulocytes 3.2, Absolute Lymphocytes 1.3, Absolute Monocytes 0.5, Absolute Eosinophils 0.1, Absolute Basophils 0, PUBS MCHC 33.6 05/10/161811: CBC w Diff NO MAN DIFF REQ, RBC 3.14 L, MCV 86.8, MCH 29.1, RDW 20.1 H, MPV 7.9, Gran % 64.5, Lymphocytes % 24.1, Monocytes % 8.7, Eosinophils % 2.0, Basophils % 0.7, Absolute Granulocytes 3.2, Absolute Lymphocytes 1.2, Absolute Monocytes 0.4, Absolute Eosinophils 0.1, Absolute Basophils 0, PUBS MCHC 33.5 Lines/Diet/Fluids Restraints: none Assessment/Plan Assessment: 70/M with PMH of Homa on Xarelto who underwent a colonoscopy a week prior to admission and presented to [facility] on 05/08/16 in the ICU with complaints of bright blood per rectum. Transferred from ICU to [facility] on 05/09/16 Assessment and plan 1. Bright blood per rectum/bloody diarrhea/weakness/dizziness - Patient was on Xarelto for A.fib, he underwent a colonoscopy a week prior to admission, presented with anemia associated with symptom and sign suggestive of hypovolemia (low BP, weakness and dizziness). - S/P 2 packed RBCs transfusion - H/H stable at 8.7/26.5 - Diet has been advanced to regular, toerated well. - Antihypertensiveto be resumed on discharge, xorelto to be resumed from tmrw 05/12/16 as per GI. 2. Normocytic anemia Hemoglobin on November 2015 was 14, on February 2016 his hemoglobin dropped to 9.5. Old records indicate that since February 18 his hemoglobin has been around 9.5. - now post BRBPR - H/H stable at 8.7/26.[address] abnormalities on EKG Patient EKG showed some ST elevation and depression, no real change from his previous EKG. - Serial trops were negative 4. DOROTHY - Baseline Cr is 1 - On admission his creatinine is 1.4. - BUN/creatinine improved. - Given the history of bleeding, this patient most likely has DOROTHY was thought to be 2/2 hypovolemia and GI Bleed - Lisinopril and furosemide both were on hold, will resume at normal dosage on discharge. 5. A. fib - Xarelto on hold , to resume from tmrw 05/12/16 - We will keep potassium more than 4 and magnesium more than 2. - Metoprolol continued on discharge. 6.CHF with ICD implanted - continue Digoxin - continue Spironolacton 7.HTN - stable - resume home meds on discharge. DVT: ALPS only for now Diet: Regular CODE STATUS: Full code Problem List: 1. GI bleed Pain Ratin Pain Location: none Pain Goal: Remain pain free Pain Plan: tylenol Tomorrow's Labs & Rationales: dc today Discharge Plan Discharge Disposition: home Stable for Discharge? Yes Anticipated Discharge (Day): today If Discharged Today/In 24 Hrs: CMR done
[2016-05-11 08:34] VITALS: BP 114/64
[2016-05-11 10:50] VITALS: BP 124/60
--- NOTE | 2016-05-11 11:45 | Patient Discharge Instructions ---
Discharge Instructions General Discharge Information You were seen/treated for: GI bleed Special Instructions: please follow up with your PCP within one week of discharge. Please follow up with your GI doctor after discharge. Please continue taking your medication regularly as prescribed. Please resume taking your xorelto at home dosage starting 05/11/16 Diet Continue normal diet: No Recommended Diet: Regular Diet Activity Full Activity/No Limits: Yes Acute Coronary Syndrome Inclusion Criteria At DC or during hospital stay patient has or had the following: ACS DIAGNOSIS No Discharge Core Measures Meds if any: Prescribed or Continued at Discharge Meds if any: NOT Prescribed or Continued at Discharge Congestive Heart Failure Inclusion Criteria At DC or during hospital stay patient has or had the following: CHF DIAGNOSIS No Discharge Core Measures Meds if any: Prescribed or Continued at Discharge Meds if any: NOT Prescribed or Continued at Discharge Cerebrovascular accident Inclusion Criteria At DC or during hospital stay patient has or had the following: CVA/TIA Diagnosis No Discharge Core Measures Meds if any: Prescribed or Continued at Discharge Meds if any: NOT Prescribed or Continued at Discharge Venous thromboembolism Inclusion Criteria VTE Diagnosis No VTE Type NONE VTE Confirmed by (Test) NONE Discharge Core Measures - Per Current guidelines, there needs to be overlap - treatment for the first 5 days of Warfarin therapy. - If discharged on Warfarin prior to 5 days of - overlap therapy, the patient will need to be - assessed for post discharge needs including - *Post discharge parental anticoagulation - *Warfarin and/or parental anticoagulation education - *Follow up date to check INR post discharge At least 5 days overlap therapy as Inpatient No Meds if any: Prescribed or Continued at Discharge Note: Overlap Therapy is Warfarin and Anticoagulant Meds if any: NOT Prescribed or Continued at Discharge
[2016-05-11 12:40] LABS: ABSOLUTE BASOPHIL COUNT 0 /CUMM (0.0-0.2); ABSOLUTE EOSINOPHIL COUNT 0.1 /CUMM (0.0-0.7); ABSOLUTE LYMPH COUNT 1.1 /CUMM (1.2-3.4); ABSOLUTE MONOCYTE COUNT 0.5 /CUMM (0.10-0.60); BASOPHIL % 0.6 % (0.0-2.0); EOSINOPHIL % 1.5 % (0-5); HEMATOCRIT 26.2 % (42-52); MEAN CORPUSCULAR HGB 29.6 PG (27.0-31.0); MEAN CORPUSCULAR HGB CONC 33.5 G/DL (33.0-37.0); MEAN CORPUSCULAR VOLUME 88.1 FL (80.0-94.0); MEAN PLATELET VOLUME 8.1 FL (7.4-10.4); PLATELET COUNT 120 /CUMM (130-400); RBC DISTRIBUTION WIDTH 20.4 % (11.5-14.5); RED BLOOD CELL CT 2.97 /CUMM (4.70-6.10); WHITE BLOOD CELL COUNT 5.7 /CUMM (4.8-10.8)
--- NOTE | 2016-06-01 06:50 | Discharge Summary ---
Visit Information Visit Dates Admission Date: 05/08/16 Discharge Date: 05/11/16 Hospital Course Course Attending Physician: KELSI DAVID MD Primary Care Physician: MARIA T GOMEZ,JASON Cantu Hospital Course: This is a 70 years old gentleman with past medical history of A. 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 Prior to this he had colonoscopy and excision of 2 sessile polyps on April 29 and he started AC after 48 hours as instructed and was found to have blood in stool.He also felt lightheadedness and dizzy on presentation in the ER but denied any difficulty in breathing, palpitation, shortness of breath,chest pain. On presentation he was not in acute distress, alert oriented 3, had dry mucous membranes, no palpable nodes,Irregularly irregular heart rhythm without any murmurs, there was an anterior mid chest wall scar, AICD in place, clear lungs bilaterally,normal contour soft no tenderness, no palpable mass, there were no varicose vein, no edema, warm extremities Relevant Labs on presentation: H&H 9.3 and 27.8, INR 1.40, PTT 14.7, BUN of 50, creatinine 1.4 (baseline 1.0-1.1), GFR of 50 EKG: A. fib 94 bpm irregularly irregular, left bundle branch block and ST depression which were present from old EKG. Problem list alongwith assesment and plan : 1. GI bleed Mr. Hollins was admitted initally to ICU for closer monitoring due to GI bleed and soon downgraded to Telemetry.Two large bore iv needles, cross matchingand typing were done. He had undergone a colonoscopy a week prior to this admission at which point 2 large sessile right-sided colon polyps were removed in a piecemeal fashion and the polypectomy sites then had a total of 7 hemoclips applied to them. He was instructed to hold his Xarelto for 72 hours which he did and he restarted it over the weekend and began having some loose stool and early this morning he noted his stool to be blood tinged, but he did not pass any clots.The BRBRR was thought to be 2/2 to a post polypectomy bleed and exacerbated by the xarelto. His hgb was stable from when he was first found to be anemic this past February, so repeat endoscopic intervention was not warranted.Ofcourse xorelto was held during admission and few days after discharge.He recieved 2 units of PRBC.H/H stable was stable at 8.7/26 upon discharge and he didnot have any episodes of Any GI bleed during the stay. 2. Chronic Normocytic anemia with acute Blood Loss anemia. Hemoglobin on November 2015 was 14, on February 2016 his hemoglobin dropped to 9.5. Old records indicate that since February 18 his hemoglobin has been around 9.5.Anemia stabilised posttranfusion of [address] abnormalities on EKG Patient EKG showed some ST elevation and depression, no real change from his previous EKG. - Serial trops are negative 4. DOROTHY - Prerenal 2/2 to volume loss. Baseline Cr was noted to be 1.On admission his creatinine is 1.4. BUN/creatinine ratio of 35.7, this was most likely prerenal in nature. Given the history of bleeding, this patient most likely had DOROTHY 2/2 hypovolemia and GI Bleed. He was started on IV fluids, after which his creatinine went back to 1.1.Lisinopril and furosemide both were held, which were restarted on discharge once creatinine was WNL. 5. A. fib Xarelto was on hold.Potassium was kept more than 4 and magnesium more than 2. Metoprolol was held and restarted on discharge. 6.CHF with ICD implanted He was cntd on digoxin and spironolactone, lasix was help on admission due to DOROTHY, this was resumed on discharge 7.HTN Patient was hypotensive on presentation 2/2 to volume loss.Entresto and Metoprolol were on hold. These were restarted upon discharge. DVT: ALPS due to GI bleed. Diet: Regular CODE STATUS: Full code Allergies: Coded Allergies: NO KNOWN ALLERGIES (04/29/16) Disposition Summary Disposition Principal Diagnosis: 1. Lower GI bleed - postpolypectomy exacerbated by Xorelto ( for Afib) 2. Chronic Normocytic anemia with acute Blood Loss anemia. 3. ST abnormalities on EKG 4. DOROTHY - Prerenal 2/2 to volume loss. Additional Diagnosis: 5. A. fib 6.CHF with ICD implanted 7.HTN Discharge Disposition: home or self care Discharge Instructions General Discharge Information Code Status: Full Code Patient's Diet: regular Patient's Activity: as tolerated Follow-Up Instructions/Appts: please follow up with your PCP within one week of discharge. Please follow up with your GI doctor after discharge. Please continue taking your medication regularly as prescribed. Please resume taking your xorelto at home dosage starting 05/11/16 Medications at Discharge Discharge Medications: Stop taking the following medications: Rivaroxaban (Xarelto) 20 MG TABLET ORAL DAILY Qty = 90 Continue taking these medications: Losartan Potassium (Losartan Potassium) 100 MG TABLET 1 Tablet ORAL DAILY Qty = 90 Comments: GIVEN 05/11/16 @ 1050 Metoprolol Succinate (Metoprolol Succinate) 100 MG TAB.ER.24H 1 Tablet ORAL DAILY Qty = 90 Comments: GIVEN 05/11/16 @ 1050 Furosemide (Furosemide) 40 MG TABLET 1 Tablet ORAL DAILY Qty = 90 Spironolactone (Spironolactone) 25 MG TABLET 1 Tablet ORAL DAILY Qty = 90 Comments: GIVEN 05/11/16 @ 1050 Sacubitril/Valsartan (Entresto 24 MG-26 MG Tablet) 24 MG-26 MG TABLET 1 Tablet ORAL DAILY Qty = 90 Digoxin (Digoxin) 125 MCG TABLET 1 Tablet ORAL DAILY Qty = 30 Instructions: MWF WHOLE PILL, T-TH HALF TAB, SAT/SUN VARIABLE, USUALLY WHOLE Cyanocobalamin/FA/Pyridoxine (Folbic Tablet) 2 MG-2.5 MG-25 MG TABLET 1 Tablet ORAL DAILY Qty = 90 Ferrous Sulfate (Ferrous Sulfate) 324 MG (65 MG IRON) TABLET.DR 1 Tablet ORAL DAILY Docusate Sodium (Colace) 100 MG CAPSULE 1 Capsule ORAL DAILY Acetaminophen (Tylenol Extra Strength) 500 MG TABLET 1-2 Tablet ORAL NEEDED as needed for PAIN Comments: GIVEN 05/10/16 @ 1000 Copies To: MARIA T GOMEZ,JASON Cantu; JEFF GOMEZ,ADALID Mcnally; BOBO GOMEZ,MILLIE Bejarano MD Review Statement Documenting Attending: JOANN GOMEZ,KELSI
== END 2016-05-11 14:45 | DRG 920 ==
LOC: CANRESERV → ENRESERVTM → ENRESERVDT → ERH 10:49 → 1NO 12:42 → ERHI 12:42 → 1NO 12:42 → ENPENDDIS 12:42 → CRI 16:59 → 1NO 05-09 22:29
PROVIDERS: Internal Medicine; Physician Assistant; Preventive Medicine Public Health & General Preventive Medicine; Student in an Organized Health Care Education/Training Program; ADMIT Internal Medicine Pulmonary Disease
PROC: 30233N1 Transfusion of Nonautologous Red Blood Cells into Peripheral Vein, Percutaneous Approach (ICD-10-PCS; principal; 2016-05-08)
DX: K91.840 Postprocedural hemorrhage of a digestive system organ or structure following a digestive system procedure (principal); K92.2 Gastrointestinal hemorrhage, unspecified; N17.9 Acute kidney failure, unspecified; Z98.890 Other specified postprocedural states; D64.9 Anemia, unspecified; I25.5 Ischemic cardiomyopathy; I48.91 Unspecified atrial fibrillation; Z79.01 Long term (current) use of anticoagulants; I10 Essential (primary) hypertension; E78.5 Hyperlipidemia, unspecified; I25.2 Old myocardial infarction; Z95.1 Presence of aortocoronary bypass graft; Z95.810 Presence of automatic (implantable) cardiac defibrillator
CPT/HCPCS: 1NSP; CCU; 36415; 82436; 86920; 93005; 93010; 96360; 96361; 99291; J0131; P9016